=== PATIENT | female | born 1965 | race Caucasian/White ===

== ENCOUNTER 2017-01-08 13:33 | Inpatient (IN) | payer OTHER ==
[~2017-01-08] VITALS: Ht 162.6 cm; Wt 74.0 kg
[2017-01-08] MEDS ORDERED: METF500T4 PO (17:59)
[2017-01-08] MEDS ORDERED: VANCOMYCIN 1 GM (PMX) 250 ML IVPB SCH (18:00)
[2017-01-08 18:34] LABS: BASOPHILS % 0.2 % (0.0-2.0); EOSINOPHILS % 0.1 % (0.0-7.0); HEMATOCRIT 35.3 % (37.0-47.0); HEMOGLOBIN 11.7 g/dl (12.0-16.0); LYMPHOCYTES % 10.9 % (15.0-51.0); MEAN CORPUSCULAR HEMOGLOBIN 26.7 pg (29.0-33.0); MEAN CORPUSCULAR HGB CONC 33.1 g/dl (32.0-37.0); MEAN CORPUSCULAR VOLUME 80.6 fl (82.0-101.0); MEAN PLATELET VOLUME 10.1 fl (7.4-10.4); MONOCYTE # 0.6 10^3/ul (0.3-0.9); MONOCYTES % 6.7 % (0.0-11.0); NEUTROPHIL # 7.5 10^3/ul (1.6-7.5); NEUTROPHILS % 81.1 % (39.0-77.0); PLATELET COUNT 206 10^3/UL (140-415); RED BLOOD COUNT 4.38 10^6/ul (4.20-5.40); RED CELL DISTRIBUTION WIDTH 13.2 % (11.5-14.5); WHITE BLOOD COUNT 9.2 10^3/ul (4.8-10.8)
--- NOTE | 2017-01-08 18:40 | RADRPT ---
PROCEDURE: Right foot series CLINICAL INDICATION: Right foot pain. Dorsal wound TECHNIQUE: AP, oblique, and lateral views of the right foot were obtained. COMPARISON: None FINDINGS: No acute fracture or dislocations are seen. The osseous structures are well mineralized. The artic ular surfaces are normal. Dorsal soft tissue swelling is seen with a soft tissue defect identified. A radiopaque structure is seen adjacent to the first metatarsal head which may represent a calcific ation. Atherosclerotic vascular disease is seen. A plantar calcaneal spur is seen. IMPRESSION: 1. No radiographic evidence for osteomyelitis. If clinical concern for osteomyelitis persist, an M RI of the right foot is recommended. 2. Dorsal soft tissue swelling of the soft tissue defect which may represent an ulcer. 3. Radiopaque structure adjacent to the first metatarsal head which may represent a calcification. RPTAT: HPNM Physician Joselyn Date Time Electronically viewed and signed by Physician Joselyn on 01/08/2017 18:40 /
[2017-01-08 18:48] LABS: CALCIUM 9.6 mg/dl (8.4-10.2); CREATININE 0.91 mg/dl (0.44-1.00); POTASSIUM 4.5 mmol/L (3.5-5.1)
[2017-01-08] MEDS ORDERED: INSULIN REGULAR, HUMAN 100 UNIT/1 ML 3ML VIAL SC ONE (19:30)
[2017-01-08] MEDS ORDERED: SOD CHLORIDE 0.9% 1,000 ML IV SCH (19:47)
--- NOTE | 2017-01-08 19:52 | ERA ---
ER Documentation Chief Complaint Date/Time DATE: 01/08/17 TIME: 19:48 Chief Complaint RIGHT FOOT LAC DIABETIC HPI This is a 51-year-old female with a history of diabetes complains of mosquito bite to the top of her right foot last week that has progressively gotten more red with a developing ulcer. She says that her shoe is been rubbing on this area now has created a deep wound in the right foot that is red. Yesterday she had chills with subjective fever but none documented. She says the pain is mild. No swelling in the leg no chest pain cough shortness of breath or other symptoms ROS All systems reviewed and are negative except as per history of present illness. Medications Home Meds Reported Medications Metformin Hcl* (Metformin Hcl*) 500 Mg Tablet, 500 MG PO WITH BREAKFAST DINNE, # 60 TAB 01/08/17 Allergies Allergies: Coded Allergies: No Known Allergy (Unverified , 01/08/17) PMhx/Soc History of Surgery: Yes (HYSTERECTOMY ) Anesthesia Reaction: No Hx Miscellaneous Medical Probl: Yes (DM) Hx Alcohol Use: Yes Hx Substance Use: No Hx Tobacco Use: No Smoking Status: Never smoker FmHx Family History: No coronary disease Physical Exam Vitals Vital Signs Date Time Temp Pulse Resp B/P Pulse Ox O2 Delivery O2 Flow Rate FiO2 01/08/17 18:38 76 20 128/67 100 Room Air 01/08/17 13:38 98.1 78 18 134/67 99 Physical Exam Const: Well-developed, well-nourished Head: Atraumatic, normocephalic Eyes: Normal Conjunctiva, PERRLA, EOMI, normal sclera, no nystagmus ENT: Normal External Ears, Nose and Mouth, moist mucus membranes. Neck: Full range of motion. No meningismus, no lymphadenopathy. Resp: Clear to auscultation bilaterally, no wheezing, rhonchi, rales Cardio: Regular rate and rhythm, no murmurs, S1 S2 present Abd: Soft, non tender x 4, non distended. Normal bowel sounds, no guarding or rebound, no pulsitile abdominal masses or bruits Skin: No petechiae or rashes, no ecchymosis , no maculopapular rash Back: No midline or flank tenderness Ext: No cyanosis, or edema, FROM x 4, the distal dorsal part of the right foot has erythema surrounding a irregular shaped foot ulcer with pus. The ulcers approximately 2 inches in length. By half an inch wide, neurovascularly intact x 4 Neur: Awake and alert, STR 5/5 x 4, sensation intact x 4, no focal findings, cerebellum intact Psych: Normal Mood and Affect Result Diagram: 01/08/17181401/08/171814 Results 24 hrs Laboratory Tests Test 01/08/17 18:15 01/08/17 19:32 White Blood Count 9.210^3/ul Red Blood Count 4.3810^6/ul Hemoglobin 11.7g/dl Hematocrit 35.3% Mean Corpuscular Volume 80.6fl Mean Corpuscular Hemoglobin 26.7pg Mean Corpuscular Hemoglobin Concent 33.1g/dl Red Cell Distribution Width 13.2% Platelet Count 31595^3/UL Mean Platelet Volume 10.1fl Neutrophils % 81.1% Lymphocytes % 10.9% Monocytes % 6.7% Eosinophils % 0.1% Basophils % 0.2% Nucleated Red Blood Cells % 0.0/100WBC Neutrophils # 7.510^3/ul Lymphocytes # 1.010^3/ul Monocytes # 0.610^3/ul Eosinophils # 0.010^3/ul Basophils # 0.010^3/ul Nucleated Red Blood Cells # 0.010^3/ul Sodium Level 133mmol/L Potassium Level 4.5mmol/L Chloride Level 89mmol/L Carbon Dioxide Level 27mmol/L Anion Gap 22 Blood Urea Nitrogen 20mg/dl Creatinine 0.91mg/dl Glucose Level 462mg/dl Calcium Level 9.6mg/dl Bedside Glucose 471mg/dL Current Medications Medications (Trade) Dose Ordered Sig/Faheem Route PRN Reason Start Time Stop Time Status Last Admin Dose Admin Vancomycin HCl (Vancocin) 250 ml @ 125 mls/hr ONCE IVPB 01/08/17 18:00 01/08/17 19:59 01/08/17 18:21 Insulin Human Regular (Humulin R) 10 unit ONCE ONCE SC 01/08/17 19:30 01/08/17 19:31 DC 01/08/17 19:42 Procedures/MDM PROCEDURE: Right foot series CLINICAL INDICATION: Right foot pain. Dorsal wound TECHNIQUE: AP, oblique, and lateral views of the right foot were obtained. COMPARISON: None FINDINGS: No acute fracture or dislocations are seen. The osseous structures are well mineralized. The articular surfaces are normal. Dorsal soft tissue swelling is seen with a soft tissue defect identified. A radiopaque structure is seen adjacent to the first metatarsal head which may represent a calcification. Atherosclerotic vascular disease is seen. A plantar calcaneal spur is seen. IMPRESSION: 1. No radiographic evidence for osteomyelitis. If clinical concern for osteomyelitis persist, an MRI of the right foot is recommended. 2. Dorsal soft tissue swelling of the soft tissue defect which may represent an ulcer. 3. Radiopaque structure adjacent to the first metatarsal head which may represent a calcification. RPTAT: HPNM Sadiq Rousseau Physician Date Time Electronically viewed and signed by Sadiq Rousseau Physician on 01/08/2017 18 :40 / CC: GONZALO YAO DO Patient's had blood cultures and will start vancomycin. Will get a wound culture now We will admit for IV antibiotics and wound care Departure Diagnosis: Primary Impression: Cellulitis Qualified Code: L03.115 - Cellulitis of right lower extremity Additional Impressions: Diabetic ulcer of right foot Qualified Code: E11.621 - Diabetic ulcer of right midfoot associated with type 2 diabetes mellitus, with fat layer exposed Uncontrolled diabetes mellitus Qualified Code: E11.65 - Uncontrolled type 2 diabetes mellitus with hyperglycemia, with long-term current use of insulin Condition: Stable GONZALO YAO DO Jan 08, 2017 19:52
[2017-01-08] MEDS ORDERED: ONDANSETRON 4 MG INJ IV PRN (20:00)
[2017-01-08] MEDS ORDERED: ACETAMINOPHEN 325 MG TAB PO PRN (20:00)
[2017-01-08 20:41] VITALS: TEMP 98
[2017-01-08] MEDS ORDERED: INSULIN ASPART [NOVOLOG] 3 ML PEN SC ONE (21:30)
[2017-01-08] MEDS ORDERED: INSULIN GLARGINE [LANtus] 3 ML PEN SC ONE (21:30)
[2017-01-08 22:20] VITALS: BP 149/66; RESP 20
[2017-01-09 02:00] VITALS: BP 125/57; RESP 20
[2017-01-09] MEDS ORDERED: VANCOMYCIN IV PER PHARMACY XX SCH (05:00)
[2017-01-09] MEDS: VANCOMYCIN 1 GM in NS 250 ML IVPB SCH ×2 (05:40→17:59)
[2017-01-09 06:10] LABS: BASOPHILS % 0.1 % (0.0-2.0); EOSINOPHILS # 0.1 10^3/ul (0.0-0.5); EOSINOPHILS % 1.1 % (0.0-7.0); HEMOGLOBIN 10.4 g/dl (12.0-16.0); LYMPHOCYTES # 1.6 10^3/ul (0.8-2.9); LYMPHOCYTES % 18.8 % (15.0-51.0); MEAN CORPUSCULAR HEMOGLOBIN 27.1 pg (29.0-33.0); MEAN CORPUSCULAR HGB CONC 33.5 g/dl (32.0-37.0); MEAN CORPUSCULAR VOLUME 80.7 fl (82.0-101.0); MEAN PLATELET VOLUME 10.3 fl (7.4-10.4); MONOCYTE # 0.7 10^3/ul (0.3-0.9); MONOCYTES % 8.2 % (0.0-11.0); NEUTROPHIL # 5.8 10^3/ul (1.6-7.5); NEUTROPHILS % 70.8 % (39.0-77.0); PLATELET COUNT 191 10^3/UL (140-415); RED BLOOD COUNT 3.84 10^6/ul (4.20-5.40); RED CELL DISTRIBUTION WIDTH 13.2 % (11.5-14.5); WHITE BLOOD COUNT 8.3 10^3/ul (4.8-10.8)
[2017-01-09 06:47] LABS: ALBUMIN 3.3 g/dl (3.3-4.9); ALBUMIN/GLOBULIN RATIO 0.94; BILIRUBIN,INDIRECT 0.3 mg/dl (0-1.1); BILIRUBIN,TOTAL 0.3 mg/dl (0.2-1.3); CALCIUM 8.9 mg/dl (8.4-10.2); CREATININE 0.94 mg/dl (0.44-1.00); POTASSIUM 4.5 mmol/L (3.5-5.1); TOTAL PROTEIN 6.8 g/dl (6.1-8.1)
[2017-01-09 08:05] VITALS: BP 121/66; RESP 18
[2017-01-09] MEDS: INSULIN GLARGINE [LANtus] 3 ML PEN SC SCH (08:19)
[2017-01-09] MEDS: INSULIN ASPART [NOVOLOG] 3 ML PEN SC SCH ×6 (08:20→21:00)
[2017-01-09] MEDS: CEFEPIME 1GM/50 ML (PMX) 50 ML IVPB SCH ×2 (08:21→21:51)
--- NOTE | 2017-01-09 09:10 | HP ---
Date/Time of Note Date/Time of Note DATE: 01/09/17 TIME: 09:01 Assessment/Plan Lines/Catheters IV Catheter Type (from Nrs): Peripheral IV Assessment/Plan Assessment/Plan 1. Right foot infected diabetic ulcer -She will be placed on broad-spectrum antibiotic -We will follow up on MRI of the foot to rule out osteomyelitis -ID and podiatry consult will be placed as well as wound care consult 2. Diabetes hyperglycemia - will treat with insulin. Will follow up A1c level 3. Mild hyponatremia -Normal saline IV fluid was given in the ER. Will monitor closely HPI/ROS Admit Date/Time Admit Date/Time Jan 08, 2017 at 19:47 Hx of Present Illness This is a 51-year-old female with a history of diabetes who presented to the emergency department complaining of right foot infection. Patient started developing some ulceration was open wound and some drainage of the dorsum of the right foot about a week or so ago and has been progressively getting worse. She stated that the ulcer started after she was bitten by mosquito. She actually reported very minimal pain only on her right foot. She had subjective fever and chills. Abdominal pain no urinary symptoms. When she presented to the ER a chest x-ray was done that showed soft tissue swelling on the dorsum of the right foot but without radiographic evidence of osteomyelitis. Laboratory values shows glucose of 462, sodium 133, hemoglobin of 11.7 and chloride of 89 otherwise the rest of basic labs were within acceptable range. PMH/Family/Social Social History Smoking Status: Never smoker Exam/Review of Systems Vital Signs Vitals Vital Signs Date Time Temp Pulse Resp B/P Pulse Ox O2 Delivery O2 Flow Rate FiO2 01/09/17 02:00 98.9 86 20 125/57 93 01/08/17 20:41 Room Air Intake and Output 01/08/17 01/08/17 01/09/17 15:00 23:00 07:00 Intake Total 400 ml Balance 400 ml Exam Constitutional: alert, oriented, well developed Extremities: other (open ulcer on dorsum of roght foot with minimal drainage) Labs Result Diagram: 01/09/1752301/09/17523 Medications Medications Current Medications Cefepime HCl (Maxipime 1gm/50 ml (Pmx)) 50 ml @ 100 mls/hr Q12 IVPB Last administered on 01/09/17t 08:21; Admin Dose 100 MLS/HR; Start 01/09/17 at 09:00 Diagnostic Test (Pha) (Accu-Chek) 1 ea 02 XX ; Start 01/10/17 at 02:00 Insulin Glargine 11 unit 11 unit DAILY@08 SC Last administered on 01/09/17 08: 19; Admin Dose 11 UNIT; Start 01/09/17 at 08:00 Vancomycin HCl (Vancocin) 250 ml @ 125 mls/hr Q12H IVPB Last administered on 05:40; Admin Dose 125 MLS/HR; Start 01/09/17 at 05:00 Miscellaneous Information (*Rx Drug Level Order Reminder*) VANCOMYCIN TROUGH AT 0400 ONCE ONCE XX ; Start 01/10/17 at 04:00; Stop 01/10/17 at 04:01 MAYELA MARIN MD Jan 09, 2017 09:10
[2017-01-09] MEDS ORDERED: COLLAGENASE 30 GM TUBE TOP PRN (10:30)
[2017-01-09] MEDS ORDERED: PENDING SANTYL ORDER FOR WOUND CARE XX SCH (10:30)
[2017-01-09] MEDS ORDERED: INSULIN LISPRO 100 UNIT/ML VIAL SC SCH (11:30)
--- NOTE | 2017-01-09 13:39 | PN ---
Date/Time of Note Date/Time of Note DATE: 01/09/17 TIME: 13:33 Assessment/Plan VTE Prophylaxis VTE Prophylaxis Intervention: SCD's Lines/Catheters IV Catheter Type (from Nrsg): Peripheral IV Assessment/Plan Chief Complaint/Hosp Course Assessment and plan 1. Right foot diabetic foot ulcer. Continue antibiotics. Of note foot x-ray did show no radiographic evidence for osteomyelitis. MRI of the foot is pending. Podiatry and ID consulted. Will follow up with recommendations. Continue wound care. 2. Diabetes. A1c pending. Insulin adjusted for better control. Will follow up. 3. Anemia. Follow-up on iron panel. Disposition plan: Await consult recommendations. Continue in-house monitoring for now. Discussed plan of care with Dr. Martin Problems: Subjective 24 Hr Interval Summary Free Text/Dictation Denies any pain. No specific complaints. Comfortable at present. Exam/Review of Systems Vital Signs Vitals Vital Signs Date Time Temp Pulse Resp B/P Pulse Ox O2 Delivery O2 Flow Rate FiO2 01/09/17 08:05 98.1 82 18 121/66 95 01/08/17 20:41 Room Air Intake and Output 01/08/17 01/08/17 01/09/17 15:00 23:00 07:00 Intake Total 400 ml Balance 400 ml Exam Constitutional: alert, obese, oriented Psych: nl mood/affect Head: normocephalic Eyes: nl conjunctiva Neck: supple, No jvd Respiratory: clear to auscultation Cardiovascular: regular rate and rhythm Gastrointestinal: non-tender, soft Extremities: edema (BLE ) Neurological: [employer] II-XII intact, nl mental status, nl speech Skin: other (right dorsal foot ulcer seen) Results Result Diagram: 01/09/1724 01/09/17 0524 Results 24 hrs Laboratory Tests Test 01/08/17 18:15 01/08/17 19:32 01/08/17 20:48 01/08/17 21:51 White Blood Count 9.2 Red Blood Count 4.38 Hemoglobin 11.7 L Hematocrit 35.3 L Mean Corpuscular Volume 80.6 L Mean Corpuscular Hemoglobin 26.7 L Mean Corpuscular Hemoglobin Concent 33.1 Red Cell Distribution Width 13.2 Platelet Count 206 Mean Platelet Volume 10.1 Neutrophils % 81.1 H Lymphocytes % 10.9 L Monocytes % 6.7 Eosinophils % 0.1 Basophils % 0.2 Nucleated Red Blood Cells % 0.0 Neutrophils # 7.5 Lymphocytes # 1.0 Monocytes # 0.6 Eosinophils # 0.0 Basophils # 0.0 Nucleated Red Blood Cells # 0.0 Sodium Level 133 L Potassium Level 4.5 Chloride Level 89 L Carbon Dioxide Level 27 Anion Gap 22 H Blood Urea Nitrogen 20 Creatinine 0.91 Glucose Level 462 *H Calcium Level 9.6 Bedside Glucose 471 *H 460 *H 420 *H Test 01/09/17 02:07 01/09/17 05:24 01/09/17 08:00 01/09/17 11:45 Bedside Glucose 263 H 267 H 269 H White Blood Count 8.3 Red Blood Count 3.84 L Hemoglobin 10.4 L Hematocrit 31.0 L Mean Corpuscular Volume 80.7 L Mean Corpuscular Hemoglobin 27.1 L Mean Corpuscular Hemoglobin Concent 33.5 Red Cell Distribution Width 13.2 Platelet Count 191 Mean Platelet Volume 10.3 Neutrophils % 70.8 Lymphocytes % 18.8 Monocytes % 8.2 Eosinophils % 1.1 Basophils % 0.1 Nucleated Red Blood Cells % 0.0 Neutrophils # 5.8 Lymphocytes # 1.6 Monocytes # 0.7 Eosinophils # 0.1 Basophils # 0.0 Nucleated Red Blood Cells # 0.0 Sodium Level 135 Potassium Level 4.5 Chloride Level 98 Carbon Dioxide Level 25 Anion Gap 17 H Blood Urea Nitrogen 25 H Creatinine 0.94 Glucose Level 281 #H Hemoglobin A1c Calcium Level 8.9 Total Bilirubin 0.3 Direct Bilirubin 0.00 Indirect Bilirubin 0.3 Aspartate Amino Transf (AST/SGOT) 23 Alanine Aminotransferase (ALT/SGPT) 31 Alkaline Phosphatase 154 H Total Protein 6.8 Albumin 3.3 Globulin 3.50 H Albumin/Globulin Ratio 0.94 Medications Medications Current Medications Cefepime HCl (Maxipime 1gm/50 ml (Pmx)) 50 ml @ 100 mls/hr Q12 IVPB Last administered on 01/09/17 08:21; Admin Dose 100 MLS/HR; Start 01/09/17 at 09:00 Diagnostic Test (Pha) (Accu-Chek) 1 ea 02 XX ; Start 01/10/17 at 02:00 Insulin Glargine 11 unit 11 unit DAILY@08 SC Last administered on 01/09/17 08: 19; Admin Dose 11 UNIT; Start 01/09/17 at 08:00 Vancomycin HCl (Vancocin) 250 ml @ 125 mls/hr Q12H IVPB Last administered on t 05:40; Admin Dose 125 MLS/HR; Start 01/09/17 at 05:00 Miscellaneous Information (*Rx Drug Level Order Reminder*) VANCOMYCIN TROUGH AT 0400 ONCE ONCE XX ; Start 01/10/17 at 04:00; Stop 01/10/17 at 04:01 Collagenase (Santyl) 1 applic DAILY TOP ; Start 01/09/17 at 12:00 Collagenase (Santyl) 1 applic PRN PRN TOP WOUND CARE; Start 01/09/17 at 10:30 YULIET PAUL Jan 09, 2017 13:39
[2017-01-09] MEDS: COLLAGENASE 30 GM TUBE TOP SCH (13:48)
[2017-01-09 14:13] VITALS: BP 116/55; RESP 16
--- NOTE | 2017-01-09 14:25 | CONS ---
Date/Time of Note Date/Time of Note DATE: 01/09/17 TIME: 14:23 Consultation Date/Type/Reason Admit Date/Time Jan 08, 2017 at 19:47 Type of Consultation: ID Reason for Consultation Antibiotic management of a right foot diabetic ulcer, with Vancomycin and cefipime. Psychological: nl mood/affect Social History Smoking Status: Never smoker Exam/Review of Systems Vital Signs Vitals Vital Signs Date Time Temp Pulse Resp B/P Pulse Ox O2 Delivery O2 Flow Rate FiO2 01/09/17 08:05 98.1 82 18 121/66 95 01/08/17 20:41 Room Air Intake and Output 01/08/17 01/08/17 01/09/17 15:00 23:00 07:00 Intake Total 400 ml Balance 400 ml Results Result Diagram: 01/09/1724 01/09/17 0524 Results 24 hrs Laboratory Tests Test 01/08/17 18:15 01/08/17 19:32 01/08/17 20:48 01/08/17 21:51 White Blood Count 9.2 Red Blood Count 4.38 Hemoglobin 11.7 L Hematocrit 35.3 L Mean Corpuscular Volume 80.6 L Mean Corpuscular Hemoglobin 26.7 L Mean Corpuscular Hemoglobin Concent 33.1 Red Cell Distribution Width 13.2 Platelet Count 206 Mean Platelet Volume 10.1 Neutrophils % 81.1 H Lymphocytes % 10.9 L Monocytes % 6.7 Eosinophils % 0.1 Basophils % 0.2 Nucleated Red Blood Cells % 0.0 Neutrophils # 7.5 Lymphocytes # 1.0 Monocytes # 0.6 Eosinophils # 0.0 Basophils # 0.0 Nucleated Red Blood Cells # 0.0 Sodium Level 133 L Potassium Level 4.5 Chloride Level 89 L Carbon Dioxide Level 27 Anion Gap 22 H Blood Urea Nitrogen 20 Creatinine 0.91 Glucose Level 462 *H Calcium Level 9.6 Bedside Glucose 471 *H 460 *H 420 *H Test 01/09/17 02:07 01/09/17 05:24 01/09/17 08:00 01/09/17 11:45 Bedside Glucose 263 H 267 H 269 H White Blood Count 8.3 Red Blood Count 3.84 L Hemoglobin 10.4 L Hematocrit 31.0 L Mean Corpuscular Volume 80.7 L Mean Corpuscular Hemoglobin 27.1 L Mean Corpuscular Hemoglobin Concent 33.5 Red Cell Distribution Width 13.2 Platelet Count 191 Mean Platelet Volume 10.3 Neutrophils % 70.8 Lymphocytes % 18.8 Monocytes % 8.2 Eosinophils % 1.1 Basophils % 0.1 Nucleated Red Blood Cells % 0.0 Neutrophils # 5.8 Lymphocytes # 1.6 Monocytes # 0.7 Eosinophils # 0.1 Basophils # 0.0 Nucleated Red Blood Cells # 0.0 Sodium Level 135 Potassium Level 4.5 Chloride Level 98 Carbon Dioxide Level 25 Anion Gap 17 H Blood Urea Nitrogen 25 H Creatinine 0.94 Glucose Level 281 #H Hemoglobin A1c Calcium Level 8.9 Total Bilirubin 0.3 Direct Bilirubin 0.00 Indirect Bilirubin 0.3 Aspartate Amino Transf (AST/SGOT) 23 Alanine Aminotransferase (ALT/SGPT) 31 Alkaline Phosphatase 154 H Total Protein 6.8 Albumin 3.3 Globulin 3.50 H Albumin/Globulin Ratio 0.94 Medications Medications Current Medications Cefepime HCl (Maxipime 1gm/50 ml (Pmx)) 50 ml @ 100 mls/hr Q12 IVPB Last administered on 01/09/17 08:21; Admin Dose 100 MLS/HR; Start 01/09/17 at 09:00 Diagnostic Test (Pha) (Accu-Chek) 1 ea 02 XX ; Start 01/10/17 at 02:00 Insulin Glargine 11 unit 11 unit DAILY@08 SC Last administered on 01/09/17 08: 19; Admin Dose 11 UNIT; Start 01/09/17 at 08:00 Vancomycin HCl (Vancocin) 250 ml @ 125 mls/hr Q12H IVPB Last administered on 05:40; Admin Dose 125 MLS/HR; Start 01/09/17 at 05:00 Miscellaneous Information (*Rx Drug Level Order Reminder*) VANCOMYCIN TROUGH AT 0400 ONCE ONCE XX ; Start 01/10/17 at 04:00; Stop 01/10/17 at 04:01 Collagenase (Santyl) 1 applic DAILY TOP Last administered on 01/09/17 13:48; Admin Dose 1 APPLIC; Start 01/09/17 at 12:00 Collagenase (Santyl) 1 applic PRN PRN TOP WOUND CARE; Start 01/09/17 at 10:30 Heparin Sodium (Porcine) (Heparin (5000 Units/0.5 ml)) 5,000 unit BID SC ; Start 01/09/17 at 21:00 KYLE BOWEN MD Jan 09, 2017 14:25
[2017-01-09 20:00] VITALS: BP 135/74; RESP 20
[2017-01-09] MEDS: HEPARIN 5,000 UNIT/0.5 ML VIAL SC SCH (21:52)
[2017-01-10 02:00] VITALS: BP 141/64; RESP 20
[2017-01-10] MEDS ORDERED: ACCU-CHEK XX SCH (02:00)
[2017-01-10] MEDS: ACCU-CHEK XX SCH (02:00)
[2017-01-10 04:26] LABS: BASOPHILS % 0.2 % (0.0-2.0); EOSINOPHILS # 0.1 10^3/ul (0.0-0.5); EOSINOPHILS % 1.5 % (0.0-7.0); HEMATOCRIT 31.8 % (37.0-47.0); HEMOGLOBIN 10.5 g/dl (12.0-16.0); LYMPHOCYTES # 1.3 10^3/ul (0.8-2.9); LYMPHOCYTES % 20.4 % (15.0-51.0); MEAN CORPUSCULAR HEMOGLOBIN 26.7 pg (29.0-33.0); MEAN CORPUSCULAR VOLUME 80.9 fl (82.0-101.0); MEAN PLATELET VOLUME 10.2 fl (7.4-10.4); MONOCYTE # 0.5 10^3/ul (0.3-0.9); MONOCYTES % 7.1 % (0.0-11.0); NEUTROPHIL # 4.6 10^3/ul (1.6-7.5); NEUTROPHILS % 69.9 % (39.0-77.0); PLATELET COUNT 210 10^3/UL (140-415); RED BLOOD COUNT 3.93 10^6/ul (4.20-5.40); RED CELL DISTRIBUTION WIDTH 13.2 % (11.5-14.5); WHITE BLOOD COUNT 6.5 10^3/ul (4.8-10.8)
[2017-01-10 05:02] LABS: CALCIUM 9.1 mg/dl (8.4-10.2); CREATININE 0.75 mg/dl (0.44-1.00); POTASSIUM 4.2 mmol/L (3.5-5.1)
[2017-01-10] MEDS: VANCOMYCIN 1 GM in NS 250 ML IVPB SCH ×2 (05:29→17:17)
[2017-01-10] MEDS: INSULIN ASPART [NOVOLOG] 3 ML PEN SC SCH ×7 (08:03→20:05)
[2017-01-10] MEDS: INSULIN GLARGINE [LANtus] 3 ML PEN SC SCH (08:05)
--- NOTE | 2017-01-10 08:35 | PN ---
Date/Time of Note Date/Time of Note DATE: 01/10/17 TIME: 08:28 Assessment/Plan VTE Prophylaxis VTE Prophylaxis Intervention: LMWH Lines/Catheters IV Catheter Type (from Nrsg): Peripheral IV Assessment/Plan Assessment/Plan R diabetic foot cellulitis DM 2,poorly controlled Cont vanco and cefepime await A1C result await MRI of R foot ID and podiatry follow up Subjective 24 Hr Interval Summary Constitutional: no complaints Exam/Review of Systems Vital Signs Vitals Vital Signs Date Time Temp Pulse Resp B/P Pulse Ox O2 Delivery O2 Flow Rate FiO2 01/10/17 02:00 98.2 85 20 141/64 96 01/08/17 20:41 Room Air Intake and Output 01/09/17 01/09/17 01/10/17 15:00 23:00 07:00 Intake Total 350 ml 1070 ml 480 ml Balance 350 ml 1070 ml 480 ml Exam Neck: supple Respiratory: clear to auscultation Cardiovascular: regular rate and rhythm Gastrointestinal: non-tender, soft Extremities: normal pulses, other (R foot with ulcerated leion and surrounding erythema on dorsal aspect) Results Result Diagram: 01/10/17 0348 01/10/17 0348 Results 24 hrs Laboratory Tests Test 01/09/17 11:45 01/09/17 17:24 01/09/17 21:42 01/10/17 03:48 Bedside Glucose 269 H 181 177 White Blood Count 6.5 # Red Blood Count 3.93 L Hemoglobin 10.5 L Hematocrit 31.8 L Mean Corpuscular Volume 80.9 L Mean Corpuscular Hemoglobin 26.7 L Mean Corpuscular Hemoglobin Concent 33.0 Red Cell Distribution Width 13.2 Platelet Count 210 Mean Platelet Volume 10.2 Neutrophils % 69.9 Lymphocytes % 20.4 Monocytes % 7.1 Eosinophils % 1.5 Basophils % 0.2 Nucleated Red Blood Cells % 0.0 Neutrophils # 4.6 Lymphocytes # 1.3 Monocytes # 0.5 Eosinophils # 0.1 Basophils # 0.0 Nucleated Red Blood Cells # 0.0 Sodium Level 138 Potassium Level 4.2 Chloride Level 98 Carbon Dioxide Level 26 Anion Gap 18 H Blood Urea Nitrogen 20 Creatinine 0.75 Glucose Level 278 H Calcium Level 9.1 Vancomycin Level Trough 12.7 Test 01/10/17 07:53 Bedside Glucose 328 H Medications Medications Current Medications Cefepime HCl (Maxipime 1gm/50 ml (Pmx)) 50 ml @ 100 mls/hr Q12 IVPB Last administered on 01/09/17 21:51; Admin Dose 100 MLS/HR; Start 01/09/17 at 09:00 Diagnostic Test (Pha) (Accu-Chek) 1 ea 02 XX ; Start 01/10/17 at 02:00 Insulin Glargine 11 unit 11 unit DAILY@08 SC Last administered on 01/10/17 08: 05; Admin Dose 11 UNIT; Start 01/09/17 at 08:00 Vancomycin HCl (Vancocin) 250 ml @ 125 mls/hr Q12H IVPB Last administered on 05:29; Admin Dose 125 MLS/HR; Start 01/09/17 at 05:00 Collagenase (Santyl) 1 applic DAILY TOP Last administered on 01/09/17 13:48; Admin Dose 1 APPLIC; Start 01/09/17 at 12:00 Collagenase (Santyl) 1 applic PRN PRN TOP WOUND CARE; Start 01/09/17 at 10:30 Heparin Sodium (Porcine) (Heparin (5000 Units/0.5 ml)) 5,000 unit BID SC Last administered on 01/09/17 21:52; Admin Dose 5,000 UNIT; Start 01/09/17 at 21:00 DENI MTZ MD Jan 10, 2017 08:35
[2017-01-10 08:50] VITALS: BP 147/67; PULSE 83; RESP 18
[2017-01-10] MEDS: CEFEPIME 1GM/50 ML (PMX) 50 ML IVPB SCH ×2 (08:51→20:02)
[2017-01-10] MEDS: LISINOPRIL 10 MG TAB GTB SCH (08:51)
[2017-01-10] MEDS: HEPARIN 5,000 UNIT/0.5 ML VIAL SC SCH ×2 (08:52→20:03)
[2017-01-10] MEDS ORDERED: DEXTROSE 50% 50 ML SYRINGE IV PRN ×2 (09:00)
[2017-01-10] MEDS ORDERED: GLUCOSE GEL 15 GRAM TUBE BUCCAL PRN (09:00)
[2017-01-10] MEDS ORDERED: GLUCAGON 1 MG INJ IM PRN (09:00)
[2017-01-10] MEDS ORDERED: GLUCOSE GEL 15 GRAM TUBE PO PRN ×2 (09:00)
[2017-01-10 09:07] VITALS: BP 170/71; RESP 18
[2017-01-10] MEDS: COLLAGENASE 30 GM TUBE TOP SCH (12:01)
[2017-01-10 13:10] VITALS: BP 122/62; PULSE 86
--- NOTE | 2017-01-10 15:31 | CONS ---
Date/Time of Note Date/Time of Note DATE: 01/10/17 TIME: 15:30 Assessment/Plan Assessment/Plan Chief Complaint/Hosp Course Patient is alert feels good wants to take a shower she just came back from MRI WBC 6.5, no shift no bands BN 20 creatinine 0.75 Blood cultures remain negative Antimicrobials cefepime vancomycin X-ray of the foot revealed no radiographic evidence for osteomyelitis Physical examination this is a well-nourished well-developed middle-aged woman who is alert in no distress. Head atraumatic normocephalic sclera nonicteric. Neck is supple. Chest rise symmetrical breath sounds clear heart S1-S2 abdomen soft bowel tones present extremities without cyanosis right foot with necrotic wound and some drainage on the top of the foot Assessment: 1. Right foot cellulitis with chronic wound 2. Diabetes, poorly controlled Plan: Patient remains stable we will will order wound culture await for MRI report, continue antibiotics and follow podiatry recommendations Problems: Consultation Date/Type/Reason Admit Date/Time Jan 08, 2017 at 19:47 Initial Consult Date Type of Consultation: ID Exam/Review of Systems Vital Signs Vitals Vital Signs Date Time Temp Pulse Resp B/P Pulse Ox O2 Delivery O2 Flow Rate FiO2 01/10/17 13:10 86 122/62 01/10/17 09:07 98.6 18 95 01/08/17 20:41 Room Air Intake and Output 01/09/17 01/09/17 01/10/17 15:00 23:00 07:00 Intake Total 350 ml 1070 ml 480 ml Balance 350 ml 1070 ml 480 ml Results Result Diagram: 01/10/17 0348 01/10/17 0348 Results 24 hrs Laboratory Tests Test 01/09/17 17:24 01/09/17 21:42 01/10/17 03:48 01/10/17 07:53 Bedside Glucose 181 177 328 H White Blood Count 6.5 # Red Blood Count 3.93 L Hemoglobin 10.5 L Hematocrit 31.8 L Mean Corpuscular Volume 80.9 L Mean Corpuscular Hemoglobin 26.7 L Mean Corpuscular Hemoglobin Concent 33.0 Red Cell Distribution Width 13.2 Platelet Count 210 Mean Platelet Volume 10.2 Neutrophils % 69.9 Lymphocytes % 20.4 Monocytes % 7.1 Eosinophils % 1.5 Basophils % 0.2 Nucleated Red Blood Cells % 0.0 Neutrophils # 4.6 Lymphocytes # 1.3 Monocytes # 0.5 Eosinophils # 0.1 Basophils # 0.0 Nucleated Red Blood Cells # 0.0 Sodium Level 138 Potassium Level 4.2 Chloride Level 98 Carbon Dioxide Level 26 Anion Gap 18 H Blood Urea Nitrogen 20 Creatinine 0.75 Glucose Level 278 H Calcium Level 9.1 Vancomycin Level Trough 12.7 Test 01/10/17 11:53 Bedside Glucose 257 H Medications Medications Current Medications Cefepime HCl (Maxipime 1gm/50 ml (Pmx)) 50 ml @ 100 mls/hr Q12 IVPB Last administered on 01/10/17 08:51; Admin Dose 100 MLS/HR; Start 01/09/17 at 09:00 Diagnostic Test (Pha) 1 ea 1 ea 02 XX ; Start 01/10/17 at 02:00 Vancomycin HCl (Vancocin) 250 ml @ 125 mls/hr Q12H IVPB Last administered on 05:29; Admin Dose 125 MLS/HR; Start 01/09/17 at 05:00 Collagenase (Santyl) 1 applic DAILY TOP Last administered on 01/10/17 12:01; Admin Dose 1 APPLIC; Start 01/09/17 at 12:00 Collagenase (Santyl) 1 applic PRN PRN TOP WOUND CARE; Start 01/09/17 at 10:30 Heparin Sodium (Porcine) (Heparin (5000 Units/0.5 ml)) 5,000 unit BID SC Last administered on 01/10/17 08:52; Admin Dose 5,000 UNIT; Start 01/09/17 at 21:00 Insulin Glargine (Lantus) 15 unit DAILY@08 SC ; Start 01/11/17 at 08:00 Miscellaneous Information 1 ea NOTE XX ; Start 01/10/17 at 09:00 Glucose (Glutose) 15 gm Q15M PRN PO DECREASED GLUCOSE; Start 01/10/17 at 09:00 Glucose (Glutose) 22.5 gm Q15M PRN PO DECREASED GLUCOSE; Start 01/10/17 at 09: 00 Dextrose (D50w Syringe) 25 ml Q15M PRN IV DECREASED GLUCOSE; Start 01/10/17 at 09:00 Dextrose (D50w Syringe) 50 ml Q15M PRN IV DECREASED GLUCOSE; Start 01/10/17 at 09:00 Glucagon (Glucagen) 1 mg Q15M PRN IM DECREASED GLUCOSE; Start 01/10/17 at 09:00 Glucose (Glutose) 15 gm Q15M PRN BUCCAL DECREASED GLUCOSE; Start 01/10/17 at 09 :00 Lisinopril (Zestril) 10 mg DAILY GTB Last administered on 01/10/17t 08:51; Admin Dose 10 MG; Start 01/10/17 at 09:00 AYANNA HERNANDEZ NP Jan 10, 2017 15:30
[2017-01-10 16:03] VITALS: BP 181/81; RESP 17
--- NOTE | 2017-01-10 16:20 | RADRPT ---
PROCEDURE: MRI OF THE RIGHT FOOT. CLINICAL INDICATION: Possible osteomyelitis with wound in the midfoot around the metatarsals with sw elling TECHNIQUE: Multiple MRI images of the right foot were obtained in multiple planes utilizing multip le pulse sequences. Images were interpreted on the high-resolution PACS system. COMPARISON: 01/08/2017 FINDINGS: 1st ray: There is a skin ulcer along the dorsal aspect of the foot with edema within the soft tissue s over the proximal to mid first metatarsal. The ulcer and edema extends adjacent to the extensor h allucis longus tendon with a small amount of fluid surrounding the tendon fibers in keeping with ten osynovitis. There is no acute fracture, bone marrow edema, or evidence of osteomyelitis within the first metatarsal. There is no drainable abscess. There is mild partial-thickness chondral loss and osseous spurring within the first metatarsophalang eal joint. There is a bipartite medial sesamoid with mild marrow edema. The collateral ligaments a re intact. There is no significant joint effusion. 2nd ray: There is no acute fracture or bone marrow edema. There is no evidence for osteomyelitis. The metatarsophalangeal joint is intact. The chondral surfaces are preserved. The collateral ligam ents are intact. No significant joint effusion is present. There is dorsal subluxation of the proxi mal phalanx relative to the metatarsals. 3rd ray through 5th ray: There is no acute fracture or bone marrow edema. There is no evidence for osteomyelitis. The metatarsophalangeal joints are intact. The chondral surfaces are preserved. The collateral ligaments are intact. No significant joint effusion is present. There is dorsal subluxa tion of the proximal phalanges relative to the metatarsals. MIDFOOT: The tarsometatarsal joints are intact. The Lisfranc's ligament is intact. The naviculocun eiform, talonavicular, and calcaneocuboid joints are intact. Other findings: There is no Milan's neuroma. No plantar fibroma is visualized. The flexor tendons around the foot are unremarkable. There is increased signal with fatty atrophy of the muscles around the foot which may be from edema and/or denervation changes. RPTAT: QQ IMPRESSION: 1. Small skin ulcer within the dorsal subcutaneous soft tissues over the proximal to mid first meta tarsal with mild tenosynovitis of the adjacent extensor hallucis longus tendon. No evidence for ost eomyelitis or a drainable abscess. 2. 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 3. Hammertoe deformity of the lesser metatarsophalangeal joints. .Ivon Cesar MD, Date Time Electronically viewed and signed by .Ivon Cesar MD, on 01/10/2017 16:19 .T/
[2017-01-10 20:00] VITALS: BP 148/69; RESP 19
[2017-01-11 02:00] VITALS: BP 133/63; RESP 19
[2017-01-11] MEDS: ACCU-CHEK XX SCH (02:11)
[2017-01-11] MEDS: VANCOMYCIN 1 GM in NS 250 ML IVPB SCH ×2 (04:29→16:40)
[2017-01-11 06:03] LABS: BASOPHILS % 0.4 % (0.0-2.0); EOSINOPHILS # 0.1 10^3/ul (0.0-0.5); EOSINOPHILS % 2.1 % (0.0-7.0); HEMATOCRIT 29.1 % (37.0-47.0); HEMOGLOBIN 9.8 g/dl (12.0-16.0); LYMPHOCYTES # 1.3 10^3/ul (0.8-2.9); LYMPHOCYTES % 23.5 % (15.0-51.0); MEAN CORPUSCULAR HEMOGLOBIN 27.2 pg (29.0-33.0); MEAN CORPUSCULAR HGB CONC 33.7 g/dl (32.0-37.0); MEAN CORPUSCULAR VOLUME 80.8 fl (82.0-101.0); MEAN PLATELET VOLUME 10.2 fl (7.4-10.4); MONOCYTE # 0.4 10^3/ul (0.3-0.9); MONOCYTES % 7.8 % (0.0-11.0); NEUTROPHIL # 3.6 10^3/ul (1.6-7.5); NEUTROPHILS % 64.6 % (39.0-77.0); PLATELET COUNT 207 10^3/UL (140-415); RED CELL DISTRIBUTION WIDTH 13.1 % (11.5-14.5); WHITE BLOOD COUNT 5.6 10^3/ul (4.8-10.8)
[2017-01-11 06:43] LABS: CALCIUM 8.6 mg/dl (8.4-10.2); CREATININE 0.86 mg/dl (0.44-1.00); POTASSIUM 4.2 mmol/L (3.5-5.1)
[2017-01-11 08:00] VITALS: BP 138/67; RESP 18
[2017-01-11] MEDS ORDERED: INSULIN GLARGINE [LANtus] 3 ML PEN SC SCH (08:00)
[2017-01-11] MEDS: INSULIN ASPART [NOVOLOG] 3 ML PEN SC SCH ×7 (08:12→23:05)
[2017-01-11] MEDS: HEPARIN 5,000 UNIT/0.5 ML VIAL SC SCH ×2 (09:00→21:00)
[2017-01-11] MEDS: LISINOPRIL 10 MG TAB GTB SCH (09:53)
[2017-01-11] MEDS: CEFEPIME 1GM/50 ML (PMX) 50 ML IVPB SCH ×2 (09:54→21:00)
[2017-01-11] MEDS: COLLAGENASE 30 GM TUBE TOP SCH (09:58)
--- NOTE | 2017-01-11 13:35 | CONS ---
Date/Time of Note Date/Time of Note DATE: 01/11/17 TIME: 13:33 Assessment/Plan Assessment/Plan Chief Complaint/Hosp Course Patient is alert feels good no fevers Blood cultures remain negative, wound culture pending MRI revealed no osteomyelitis Antimicrobials: Cefepime vancomycin Physical examination this is a well-nourished well-developed middle-aged woman who is alert in no distress. Head atraumatic normocephalic sclera nonicteric. Neck is supple. Chest rise symmetrical breath sounds clear heart S1-S2 abdomen soft bowel tones present extremities without cyanosis right foot with necrotic wound and some drainage on the top of the foot Assessment: 1. Right foot cellulitis with chronic wound, no evidence of osteomyelitis but mild tenosynovitis 2. Diabetes, poorly controlled Plan: Patient remains, continue antibiotics, follow wound cultures and follow podiatry recommendations Discussed with staff Problems: Consultation Date/Type/Reason Admit Date/Time Jan 08, 2017 at 19:47 Type of Consultation: ID Exam/Review of Systems Vital Signs Vitals Vital Signs Date Time Temp Pulse Resp B/P Pulse Ox O2 Delivery O2 Flow Rate FiO2 01/11/17 08:00 99.2 79 18 138/67 96 01/08/17 20:41 Room Air Intake and Output 01/10/17 01/10/17 01/11/17 15:00 23:00 07:00 Intake Total 250 ml 910 ml 490 ml Balance 250 ml 910 ml 490 ml Results Result Diagram: 01/11/17 0523 01/11/17 0523 Results 24 hrs Laboratory Tests Test 01/10/17 17:11 01/10/17 20:00 01/11/17 00:28 01/11/17 02:08 Bedside Glucose 230 H 199 223 H 234 H Test 01/11/17 05:23 01/11/17 08:08 01/11/17 11:46 White Blood Count 5.6 Red Blood Count 3.60 L Hemoglobin 9.8 L Hematocrit 29.1 L Mean Corpuscular Volume 80.8 L Mean Corpuscular Hemoglobin 27.2 L Mean Corpuscular Hemoglobin Concent 33.7 Red Cell Distribution Width 13.1 Platelet Count 207 Mean Platelet Volume 10.2 Neutrophils % 64.6 Lymphocytes % 23.5 Monocytes % 7.8 Eosinophils % 2.1 Basophils % 0.4 Nucleated Red Blood Cells % 0.0 Neutrophils # 3.6 Lymphocytes # 1.3 Monocytes # 0.4 Eosinophils # 0.1 Basophils # 0.0 Nucleated Red Blood Cells # 0.0 Sodium Level 138 Potassium Level 4.2 Chloride Level 102 Carbon Dioxide Level 23 Anion Gap 17 H Blood Urea Nitrogen 27 H Creatinine 0.86 Glucose Level 261 H Calcium Level 8.6 Bedside Glucose 254 H 306 H Medications Medications Current Medications Cefepime HCl (Maxipime 1gm/50 ml (Pmx)) 50 ml @ 100 mls/hr Q12 IVPB Last administered on 01/11/17 09:54; Admin Dose 100 MLS/HR; Start 01/09/17 at 09:00 Diagnostic Test (Pha) 1 ea 1 ea 02 XX Last administered on 01/11/17 02:11; Admin Dose 1 EA; Start 01/10/17 at 02:00 Vancomycin HCl (Vancocin) 250 ml @ 125 mls/hr Q12H IVPB Last administered on 04:29; Admin Dose 125 MLS/HR; Start 01/09/17 at 05:00 Collagenase (Santyl) 1 applic DAILY TOP Last administered on 01/11/17 09:58; Admin Dose 1 APPLIC; Start 01/09/17 at 12:00 Collagenase (Santyl) 1 applic PRN PRN TOP WOUND CARE; Start 01/09/17 at 10:30 Heparin Sodium (Porcine) (Heparin (5000 Units/0.5 ml)) 5,000 unit BID SC Last administered on 01/10/17 20:03; Admin Dose 5,000 UNIT; Start 01/09/17 at 21:00 Insulin Glargine (Lantus) 15 unit DAILY@08 SC Last administered on 01/11/17 08 :13; Admin Dose 15 UNIT; Start 01/11/17 at 08:00 Miscellaneous Information 1 ea NOTE XX ; Start 01/10/17 at 09:00 Glucose (Glutose) 15 gm Q15M PRN PO DECREASED GLUCOSE; Start 01/10/17 at 09:00 Glucose (Glutose) 22.5 gm Q15M PRN PO DECREASED GLUCOSE; Start 01/10/17 at 09: 00 Dextrose (D50w Syringe) 25 ml Q15M PRN IV DECREASED GLUCOSE; Start 01/10/17 at 09:00 Dextrose (D50w Syringe) 50 ml Q15M PRN IV DECREASED GLUCOSE; Start 01/10/17 at 09:00 Glucagon (Glucagen) 1 mg Q15M PRN IM DECREASED GLUCOSE; Start 01/10/17 at 09:00 Glucose (Glutose) 15 gm Q15M PRN BUCCAL DECREASED GLUCOSE; Start 01/10/17 at 09 :00 Lisinopril (Zestril) 10 mg DAILY GTB Last administered on 01/11/17t 09:53; Admin Dose 10 MG; Start 01/10/17 at 09:00 AYANNA HERNANDEZ NP Jan 11, 2017 13:35
--- NOTE | 2017-01-11 15:22 | PN ---
Date/Time of Note Date/Time of Note DATE: 01/11/17 TIME: 15:05 Assessment/Plan VTE Prophylaxis VTE Prophylaxis Intervention: heparin Lines/Catheters IV Catheter Type (from Nrs): Peripheral IV Assessment/Plan Assessment/Plan 51-year-old female: 1. Right foot infected diabetic ulcer with cellulitis of the right foot, infectious disease following patient on vancomycin and cefepime. Wound culture pending. Podiatry consult pending. Wound care consult pending. MRI with no signs of abscess or osteomyelitis. 2. Diabetes mellitus, uncontrolled with hemoglobin A1c above range. I have adjusted her Lantus to 18 units every morning and insulin aspart 6 units q. before meals. Continue sliding scale insulin. Will add Tradjenta if needed versus resuming metformin at time of discharge. Patient definitely needs insulin therapy. Diabetic education will be ordered Prophylaxis: Heparin for DVT prophylaxis, Pepcid for GI prophylaxis Disposition: Wound care consult pending, podiatry evaluation pending Subjective 24 Hr Interval Summary Free Text/Dictation Patient remained stable, no complaints, dressing in place. MRI of the foot shows no osteomyelitis or abscess. Podiatry consult pending, wound care consult pending. Appreciate infectious disease follow-ups patient on IV antibiotics. Wound culture with gram-positive cocci and gram-negative rods, final cultures pending. Exam/Review of Systems Vital Signs Vitals Vital Signs Date Time Temp Pulse Resp B/P Pulse Ox O2 Delivery O2 Flow Rate FiO2 01/11/17 08:00 99.2 79 18 138/67 96 01/08/17 20:41 Room Air Intake and Output 01/10/17 01/10/17 01/11/17 15:00 23:00 07:00 Intake Total 250 ml 910 ml 490 ml Balance 250 ml 910 ml 490 ml Exam Constitutional: alert, oriented, well developed Respiratory: clear to auscultation, normal air movement Cardiovascular: nl pulses, regular rate and rhythm Gastrointestinal: non-tender, soft Musculoskeletal: other (Right forefoot diabetic ulcer, on exam today no edema or erythema of the foot. Dressing in place) Extremities: normal pulses Neurological: [employer]CH[employer]ING [employer] II-XII intact, nl mental status, nl speech, nl strength Results Result Diagram: 01/11/17 0523 01/11/17 0523 Results 24 hrs Laboratory Tests Test 01/10/17 17:11 01/10/17 20:00 01/11/17 00:28 01/11/17 02:08 Bedside Glucose 230 H 199 223 H 234 H Test 01/11/17 05:23 01/11/17 08:08 01/11/17 11:46 White Blood Count 5.6 Red Blood Count 3.60 L Hemoglobin 9.8 L Hematocrit 29.1 L Mean Corpuscular Volume 80.8 L Mean Corpuscular Hemoglobin 27.2 L Mean Corpuscular Hemoglobin Concent 33.7 Red Cell Distribution Width 13.1 Platelet Count 207 Mean Platelet Volume 10.2 Neutrophils % 64.6 Lymphocytes % 23.5 Monocytes % 7.8 Eosinophils % 2.1 Basophils % 0.4 Nucleated Red Blood Cells % 0.0 Neutrophils # 3.6 Lymphocytes # 1.3 Monocytes # 0.4 Eosinophils # 0.1 Basophils # 0.0 Nucleated Red Blood Cells # 0.0 Sodium Level 138 Potassium Level 4.2 Chloride Level 102 Carbon Dioxide Level 23 Anion Gap 17 H Blood Urea Nitrogen 27 H Creatinine 0.86 Glucose Level 261 H Calcium Level 8.6 Bedside Glucose 254 H 306 H Medications Medications Current Medications Cefepime HCl (Maxipime 1gm/50 ml (Pmx)) 50 ml @ 100 mls/hr Q12 IVPB Last administered on 01/11/17 09:54; Admin Dose 100 MLS/HR; Start 01/09/17 at 09:00 Diagnostic Test (Pha) 1 ea 1 ea 02 XX Last administered on 01/11/17 02:11; Admin Dose 1 EA; Start 01/10/17 at 02:00 Vancomycin HCl (Vancocin) 250 ml @ 125 mls/hr Q12H IVPB Last administered on 04:29; Admin Dose 125 MLS/HR; Start 01/09/17 at 05:00 Collagenase (Santyl) 1 applic DAILY TOP Last administered on 01/11/17 09:58; Admin Dose 1 APPLIC; Start 01/09/17 at 12:00 Collagenase (Santyl) 1 applic PRN PRN TOP WOUND CARE; Start 01/09/17 at 10:30 Heparin Sodium (Porcine) (Heparin (5000 Units/0.5 ml)) 5,000 unit BID SC Last administered on 01/10/17 20:03; Admin Dose 5,000 UNIT; Start 01/09/17 at 21:00 Insulin Glargine (Lantus) 15 unit DAILY@08 SC Last administered on 01/11/17 08 :13; Admin Dose 15 UNIT; Start 01/11/17 at 08:00 Miscellaneous Information 1 ea NOTE XX ; Start 01/10/17 at 09:00 Glucose (Glutose) 15 gm Q15M PRN PO DECREASED GLUCOSE; Start 01/10/17 at 09:00 Glucose (Glutose) 22.5 gm Q15M PRN PO DECREASED GLUCOSE; Start 01/10/17 at 09: 00 Dextrose (D50w Syringe) 25 ml Q15M PRN IV DECREASED GLUCOSE; Start 01/10/17 at 09:00 Dextrose (D50w Syringe) 50 ml Q15M PRN IV DECREASED GLUCOSE; Start 01/10/17 at 09:00 Glucagon (Glucagen) 1 mg Q15M PRN IM DECREASED GLUCOSE; Start 01/10/17 at 09:00 Glucose (Glutose) 15 gm Q15M PRN BUCCAL DECREASED GLUCOSE; Start 01/10/17 at 09 :00 Lisinopril (Zestril) 10 mg DAILY GTB Last administered on 01/11/17 09:53; Admin Dose 10 MG; Start 01/10/17 at 09:00 Procedures Procedures PROCEDURE: MRI OF THE RIGHT FOOT. CLINICAL INDICATION: Possible osteomyelitis with wound in the midfoot around the metatarsals with swelling TECHNIQUE: Multiple MRI images of the right foot were obtained in multiple planes utilizing multiple pulse sequences. Images were interpreted on the high- resolution PACS system. COMPARISON: 01/08/2017 FINDINGS: 1st ray: There is a skin ulcer along the dorsal aspect of the foot with edema within the soft tissues over the proximal to mid first metatarsal. The ulcer and edema extends adjacent to the extensor hallucis longus tendon with a small amount of fluid surrounding the tendon fibers in keeping with tenosynovitis. There is no acute fracture, bone marrow edema, or evidence of osteomyelitis within the first metatarsal. There is no drainable abscess. There is mild partial-thickness chondral loss and osseous spurring within the first metatarsophalangeal joint. There is a bipartite medial sesamoid with mild marrow edema. The collateral ligaments are intact. There is no significant joint effusion. 2nd ray: There is no acute fracture or bone marrow edema. There is no evidence for osteomyelitis. The metatarsophalangeal joint is intact. The chondral surfaces are preserved. The collateral ligaments are intact. No significant joint effusion is present. There is dorsal subluxation of the proximal phalanx relative to the metatarsals. 3rd ray through 5th ray: There is no acute fracture or bone marrow edema. There is no evidence for osteomyelitis. The metatarsophalangeal joints are intact. The chondral surfaces are preserved. The collateral ligaments are intact. No significant joint effusion is present. There is dorsal subluxation of the proximal phalanges relative to the metatarsals. MIDFOOT: The tarsometatarsal joints are intact. The Lisfranc's ligament is intact. The naviculocuneiform, talonavicular, and calcaneocuboid joints are intact. Other findings: There is no Milan's neuroma. No plantar fibroma is visualized. The flexor tendons around the foot are unremarkable. There is increased signal with fatty atrophy of the muscles around the foot which may be from edema and/or denervation changes. RPTAT: QQ IMPRESSION: 1. Small skin ulcer within the dorsal subcutaneous soft tissues over the proximal to mid first metatarsal with mild tenosynovitis of the adjacent extensor hallucis longus tendon. No evidence for osteomyelitis or a drainable abscess. 2. 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 3. Hammertoe deformity of the lesser metatarsophalangeal joints. .Ivon Cesar MD, Date Time Electronically viewed and signed by .Ivon Cesar MD, on 01/10/2017 16: 19 TAMIKO HYDE Jan 11, 2017 15:19
[2017-01-11 20:06] VITALS: BP 146/70; RESP 18
[2017-01-11] MEDS: FAMOTIDINE 20 MG TAB PO SCH (21:00)
[2017-01-11] MEDS ORDERED: INSULIN ASPART [NOVOLOG] 3 ML PEN SC ONE (23:45)
[2017-01-12] MEDS ORDERED: INSULIN ASPART [NOVOLOG] 3 ML PEN SC ONE ×2 (02:00)
[2017-01-12 02:08] VITALS: BP 136/60; RESP 18
[2017-01-12] MEDS: ACCU-CHEK XX SCH (02:59)
[2017-01-12] MEDS ORDERED: INSULIN ASPART [NOVOLOG] 3 ML PEN SC PRN ×2 (03:00)
[2017-01-12] MEDS: VANCOMYCIN 1 GM in NS 250 ML IVPB SCH ×2 (04:55→17:13)
[2017-01-12 06:12] LABS: BASOPHILS % 0.4 % (0.0-2.0); EOSINOPHILS # 0.2 10^3/ul (0.0-0.5); HEMATOCRIT 29.7 % (37.0-47.0); HEMOGLOBIN 10.1 g/dl (12.0-16.0); LYMPHOCYTES # 1.5 10^3/ul (0.8-2.9); LYMPHOCYTES % 26.1 % (15.0-51.0); MEAN CORPUSCULAR HEMOGLOBIN 27.7 pg (29.0-33.0); MEAN CORPUSCULAR VOLUME 81.4 fl (82.0-101.0); MEAN PLATELET VOLUME 9.7 fl (7.4-10.4); MONOCYTE # 0.5 10^3/ul (0.3-0.9); NEUTROPHIL # 3.4 10^3/ul (1.6-7.5); NEUTROPHILS % 60.9 % (39.0-77.0); PLATELET COUNT 219 10^3/UL (140-415); RED BLOOD COUNT 3.65 10^6/ul (4.20-5.40); RED CELL DISTRIBUTION WIDTH 12.9 % (11.5-14.5); WHITE BLOOD COUNT 5.6 10^3/ul (4.8-10.8)
[2017-01-12 07:03] LABS: CHOL/HDL RATIO 3.3 RATIO; MAGNESIUM 1.6 mg/dl (1.7-2.5); PHOSPHORUS 4.1 mg/dl (2.5-4.9)
[2017-01-12 07:52] LABS: CREATININE 0.98 mg/dl (0.44-1.00)
[2017-01-12] MEDS: INSULIN GLARGINE [LANtus] 3 ML PEN SC SCH (07:53)
[2017-01-12] MEDS: INSULIN ASPART [NOVOLOG] 3 ML PEN SC SCH ×7 (07:54→20:45)
[2017-01-12 08:01] LABS: POTASSIUM 5.1 mmol/L (3.5-5.1)
[2017-01-12 08:07] VITALS: BP 135/63; RESP 16
[2017-01-12 08:52] LABS: ALBUMIN 2.9 g/dl (3.3-4.9); BILIRUBIN,INDIRECT 0.1 mg/dl (0-1.1); BILIRUBIN,TOTAL 0.1 mg/dl (0.2-1.3); TOTAL PROTEIN 5.9 g/dl (6.1-8.1)
[2017-01-12] MEDS: HEPARIN 5,000 UNIT/0.5 ML VIAL SC SCH ×2 (09:00→20:44)
[2017-01-12] MEDS: FAMOTIDINE 20 MG TAB PO SCH ×2 (09:12→20:42)
[2017-01-12] MEDS: CEFEPIME 1GM/50 ML (PMX) 50 ML IVPB SCH ×2 (09:19→19:48)
[2017-01-12] MEDS: LISINOPRIL 10 MG TAB GTB SCH (09:19)
[2017-01-12] MEDS: COLLAGENASE 30 GM TUBE TOP SCH (09:23)
--- NOTE | 2017-01-12 13:07 | CONS ---
Date/Time of Note Date/Time of Note DATE: 01/12/17 TIME: 13:04 Assessment/Plan Assessment/Plan Chief Complaint/Hosp Course Assessment/Plan Chief Complaint/Hosp Course Alert. Awake. Denies Pain. No Acute Distress. Blood cultures remain negative, wound culture pending MRI revealed no osteomyelitis Antimicrobials: Cefepime vancomycin Physical examination this is a well-nourished well-developed middle-aged woman who is alert in no distress. Head atraumatic normocephalic sclera nonicteric. Neck is supple. Chest rise symmetrical breath sounds clear heart S1-S2 abdomen soft bowel tones present extremities without cyanosis right foot with necrotic wound and some drainage on the top of the foot Assessment: 1. Right foot cellulitis with chronic wound, no evidence of osteomyelitis but mild tenosynovitis 2. Diabetes, poorly controlled Plan: Patient remains stable. Continue antibiotics. Follow wound cultures and follow podiatry recommendations. Local Wound Care. Pain management. Monitor Labs. Discussed with staff. Problems: Consultation Date/Type/Reason Admit Date/Time Jan 08, 2017 at 19:47 Initial Consult Date Type of Consultation: ID Exam/Review of Systems Vital Signs Vitals Vital Signs Date Time Temp Pulse Resp B/P Pulse Ox O2 Delivery O2 Flow Rate FiO2 01/12/17 08:07 98.1 77 16 135/63 95 01/08/17 20:41 Room Air Intake and Output 01/11/17 01/11/17 01/12/17 14:59 22:59 06:59 Intake Total 300 ml 1060 ml 650 ml Balance 300 ml 1060 ml 650 ml Results Result Diagram: 01/12/17 0551 01/12/17 0551 Results 24 hrs Laboratory Tests Test 01/11/17 17:17 01/11/17 20:29 01/11/17 23:04 01/12/17 02:07 Bedside Glucose 243 H 250 H 360 H 283 H Test 01/12/17 05:51 01/12/17 07:49 01/12/17 12:10 White Blood Count 5.6 Red Blood Count 3.65 L Hemoglobin 10.1 L Hematocrit 29.7 L Mean Corpuscular Volume 81.4 L Mean Corpuscular Hemoglobin 27.7 L Mean Corpuscular Hemoglobin Concent 34.0 Red Cell Distribution Width 12.9 Platelet Count 219 Mean Platelet Volume 9.7 Neutrophils % 60.9 Lymphocytes % 26.1 Monocytes % 8.0 Eosinophils % 3.0 Basophils % 0.4 Nucleated Red Blood Cells % 0.0 Neutrophils # 3.4 Lymphocytes # 1.5 Monocytes # 0.5 Eosinophils # 0.2 Basophils # 0.0 Nucleated Red Blood Cells # 0.0 Sodium Level 140 Potassium Level 5.1 Chloride Level 104 Carbon Dioxide Level 26 Anion Gap 15 Blood Urea Nitrogen 28 H Creatinine 0.98 Glucose Level 234 H Calcium Level 9.0 Phosphorus Level 4.1 Magnesium Level 1.6 L Total Bilirubin 0.1 L Direct Bilirubin 0.00 Indirect Bilirubin 0.1 Aspartate Amino Transf (AST/SGOT) 81 H Alanine Aminotransferase (ALT/SGPT) 75 H Alkaline Phosphatase 409 H Total Protein 5.9 L Albumin 2.9 L Triglycerides Level 222 H Cholesterol Level 151 LDL Cholesterol, Calculated 62 HDL Cholesterol 45 Cholesterol/HDL Ratio 3.3 Bedside Glucose 283 H 253 H Medications Medications Current Medications Cefepime HCl (Maxipime 1gm/50 ml (Pmx)) 50 ml @ 100 mls/hr Q12 IVPB Last administered on 01/12/17 09:19; Admin Dose 100 MLS/HR; Start 01/09/17 at 09:00 Diagnostic Test (Pha) 1 ea 1 ea 02 XX Last administered on 01/12/17 02:59; Admin Dose 1 EA; Start 01/10/17 at 02:00 Vancomycin HCl (Vancocin) 250 ml @ 125 mls/hr Q12H IVPB Last administered on 04:55; Admin Dose 125 MLS/HR; Start 01/09/17 at 05:00 Collagenase (Santyl) 1 applic DAILY TOP Last administered on 01/12/17 09:23; Admin Dose 1 APPLIC; Start 01/09/17 at 12:00 Collagenase (Santyl) 1 applic PRN PRN TOP WOUND CARE; Start 01/09/17 at 10:30 Heparin Sodium (Porcine) (Heparin (5000 Units/0.5 ml)) 5,000 unit BID SC Last administered on 01/11/17 21:00; Admin Dose 5,000 UNIT; Start 01/09/17 at 21:00 Miscellaneous Information 1 ea NOTE XX ; Start 01/10/17 at 09:00 Glucose (Glutose) 15 gm Q15M PRN PO DECREASED GLUCOSE; Start 01/10/17 at 09:00 Glucose (Glutose) 22.5 gm Q15M PRN PO DECREASED GLUCOSE; Start 01/10/17 at 09: 00 Dextrose (D50w Syringe) 25 ml Q15M PRN IV DECREASED GLUCOSE; Start 01/10/17 at 09:00 Dextrose (D50w Syringe) 50 ml Q15M PRN IV DECREASED GLUCOSE; Start 01/10/17 at 09:00 Glucagon (Glucagen) 1 mg Q15M PRN IM DECREASED GLUCOSE; Start 01/10/17 at 09:00 Glucose (Glutose) 15 gm Q15M PRN BUCCAL DECREASED GLUCOSE; Start 01/10/17 at 09 :00 Lisinopril (Zestril) 10 mg DAILY GTB Last administered on 01/12/17 09:19; Admin Dose 10 MG; Start 01/10/17 at 09:00 Insulin Glargine (Lantus) 18 unit DAILY@08 SC Last administered on 01/12/17 07 :53; Admin Dose 18 UNIT; Start 01/12/17 at 08:00 Famotidine (Pepcid) 20 mg BID PO Last administered on 01/12/17 09:12; Admin Dose 20 MG; Start 01/11/17 at 21:00 MAYUR GUTIERREZ NP Jan 12, 2017 13:07
[2017-01-12 14:58] VITALS: BP 128/60; RESP 16
--- NOTE | 2017-01-12 16:52 | PN ---
Date/Time of Note Date/Time of Note DATE: 01/12/17 TIME: 16:46 Assessment/Plan VTE Prophylaxis VTE Prophylaxis Intervention: heparin Lines/Catheters IV Catheter Type (from Nrsg): Peripheral IV Assessment/Plan Assessment/Plan 51-year-old female: 1. Right foot infected diabetic ulcer with cellulitis of the right foot, infectious disease following, patient on vancomycin and cefepime. Wound culture with enterococcus and Luciana. MRI with no signs of abscess or osteomyelitis. Follow further ID recommendation regarding antibiotic adjustments pending. Podiatry consult pending with Dr. Navarro, he will be seeing the patient today for further recommendations. Continue wound care. 2. Diabetes mellitus, uncontrolled with hemoglobin A1c above range. Continue current regimen of Lantus to 18 units every morning and insulin aspart 6 units q. before meals. Continue sliding scale insulin. We will resume metformin today Diabetic education pending. Prophylaxis: Heparin for DVT prophylaxis, Pepcid for GI prophylaxis Disposition: Wound care and IV antibiotic, podiatry evaluation pending, if no surgical intervention discharge planning within 24 hours with antibiotic recommendation from infectious disease and wound care. Subjective 24 Hr Interval Summary Free Text/Dictation Patient doing well, no complaints, no pain from her right foot. Currently on IV antibiotics cefepime and vancomycin. Based on wound culture I will ask ID to streamline her antibiotic regimen for discharge planning. Patient to see podiatry hopefully tonight in-house and if no surgical debridement needed will plan for discharge in the next 24 hours. Resuming metformin today as blood sugar still in the 200s, diabetic education pending Exam/Review of Systems Vital Signs Vitals Vital Signs Date Time Temp Pulse Resp B/P Pulse Ox O2 Delivery O2 Flow Rate FiO2 01/12/17 14:58 98.3 82 16 128/60 95 01/08/17 20:41 Room Air Intake and Output 01/11/17 01/11/17 01/12/17 15:00 23:00 07:00 Intake Total 50 ml 1060 ml 650 ml Balance 50 ml 1060 ml 650 ml Exam Constitutional: alert, oriented, other (Irish-speaking), well developed Respiratory: clear to auscultation, normal air movement Cardiovascular: nl pulses, regular rate and rhythm Gastrointestinal: non-tender, soft Musculoskeletal: other (Right foot with dressing in place. No tenderness to palpation or erythema seen) Extremities: normal pulses, other (No edema, clubbing or cyanosis) Neurological: SENIOR SYSTEM OPERATOR II-XII intact, nl mental status, nl strength Results Result Diagram: 01/12/17 0551 01/12/17 0551 Results 24 hrs Laboratory Tests Test 01/11/17 17:17 01/11/17 20:29 01/11/17 23:04 01/12/17 02:07 Bedside Glucose 243 H 250 H 360 H 283 H Test 01/12/17 05:51 01/12/17 07:49 01/12/17 12:10 White Blood Count 5.6 Red Blood Count 3.65 L Hemoglobin 10.1 L Hematocrit 29.7 L Mean Corpuscular Volume 81.4 L Mean Corpuscular Hemoglobin 27.7 L Mean Corpuscular Hemoglobin Concent 34.0 Red Cell Distribution Width 12.9 Platelet Count 219 Mean Platelet Volume 9.7 Neutrophils % 60.9 Lymphocytes % 26.1 Monocytes % 8.0 Eosinophils % 3.0 Basophils % 0.4 Nucleated Red Blood Cells % 0.0 Neutrophils # 3.4 Lymphocytes # 1.5 Monocytes # 0.5 Eosinophils # 0.2 Basophils # 0.0 Nucleated Red Blood Cells # 0.0 Sodium Level 140 Potassium Level 5.1 Chloride Level 104 Carbon Dioxide Level 26 Anion Gap 15 Blood Urea Nitrogen 28 H Creatinine 0.98 Glucose Level 234 H Calcium Level 9.0 Phosphorus Level 4.1 Magnesium Level 1.6 L Total Bilirubin 0.1 L Direct Bilirubin 0.00 Indirect Bilirubin 0.1 Aspartate Amino Transf (AST/SGOT) 81 H Alanine Aminotransferase (ALT/SGPT) 75 H Alkaline Phosphatase 409 H Total Protein 5.9 L Albumin 2.9 L Triglycerides Level 222 H Cholesterol Level 151 LDL Cholesterol, Calculated 62 HDL Cholesterol 45 Cholesterol/HDL Ratio 3.3 Bedside Glucose 283 H 253 H Medications Medications Current Medications Cefepime HCl (Maxipime 1gm/50 ml (Pmx)) 50 ml @ 100 mls/hr Q12 IVPB Last administered on 01/12/17 09:19; Admin Dose 100 MLS/HR; Start 01/09/17 at 09:00 Diagnostic Test (Pha) 1 ea 1 ea 02 XX Last administered on 01/12/17 02:59; Admin Dose 1 EA; Start 01/10/17 at 02:00 Vancomycin HCl (Vancocin) 250 ml @ 125 mls/hr Q12H IVPB Last administered on 04:55; Admin Dose 125 MLS/HR; Start 01/09/17 at 05:00 Collagenase (Santyl) 1 applic DAILY TOP Last administered on 01/12/17 09:23; Admin Dose 1 APPLIC; Start 01/09/17 at 12:00 Collagenase (Santyl) 1 applic PRN PRN TOP WOUND CARE; Start 01/09/17 at 10:30 Heparin Sodium (Porcine) (Heparin (5000 Units/0.5 ml)) 5,000 unit BID SC Last administered on 01/11/17 21:00; Admin Dose 5,000 UNIT; Start 01/09/17 at 21:00 Miscellaneous Information 1 ea NOTE XX ; Start 01/10/17 at 09:00 Glucose (Glutose) 15 gm Q15M PRN PO DECREASED GLUCOSE; Start 01/10/17 at 09:00 Glucose (Glutose) 22.5 gm Q15M PRN PO DECREASED GLUCOSE; Start 01/10/17 at 09: 00 Dextrose (D50w Syringe) 25 ml Q15M PRN IV DECREASED GLUCOSE; Start 01/10/17 at 09:00 Dextrose (D50w Syringe) 50 ml Q15M PRN IV DECREASED GLUCOSE; Start 01/10/17 at 09:00 Glucagon (Glucagen) 1 mg Q15M PRN IM DECREASED GLUCOSE; Start 01/10/17 at 09:00 Glucose (Glutose) 15 gm Q15M PRN BUCCAL DECREASED GLUCOSE; Start 01/10/17 at 09 :00 Lisinopril (Zestril) 10 mg DAILY GTB Last administered on 01/12/17 09:19; Admin Dose 10 MG; Start 01/10/17 at 09:00 Insulin Glargine (Lantus) 18 unit DAILY@08 SC Last administered on 01/12/17 07 :53; Admin Dose 18 UNIT; Start 01/12/17 at 08:00 Famotidine (Pepcid) 20 mg BID PO Last administered on 01/12/17 09:12; Admin Dose 20 MG; Start 01/11/17 at 21:00 Miscellaneous Information (*Rx Drug Level Order Reminder*) 1 ONCE ONCE XX ; Start 01/13/17 at 04:00; Stop 01/13/17 at 04:01 TAMIKO HYDE Jan 12, 2017 16:52
--- NOTE | 2017-01-12 16:56 | CONS ---
Date/Time of Note Date/Time of Note DATE: 01/12/17 TIME: 16:54 Assessment/Plan Assessment/Plan Problems: (1) Cellulitis Status: Acute Qualifiers: Qualified Code: L03.115 - Cellulitis of right lower extremity (2) Uncontrolled diabetes mellitus Status: Acute Qualifiers: Qualified Code: E11.65 - Uncontrolled type 2 diabetes mellitus with hyperglycemia, with long-term current use of insulin (3) Diabetic ulcer of right foot Status: Acute Qualifiers: Qualified Code: E11.621 - Diabetic ulcer of right midfoot associated with type 2 diabetes mellitus, with fat layer exposed (4) Non-pressure chronic ulcer of other part of right foot with fat layer exposed Additional Assessment/Plan An MRI will be necessary to evaluate further and do surgical planning if necessary. I will review the MRI when available. For now dressing changes to be done daily. Nonweightbearing on the right foot. Patient will be scheduled for surgery pending MRI. Thank you very much for involving me in the care of this patient. Consultation Date/Type/Reason Admit Date/Time Jan 08, 2017 at 19:47 Date of Consultation: Jan 12, 2017 Type of Consultation: Foot and ankle surgery Reason for Consultation Right foot open wound with possible abscess; question regarding surgical management Hx of Present Illness Thank you very much for involving me in the care of this patient. As you know this is a 51-year-old female patient with diabetes mellitus presenting emergency room complaining of right foot infection. Patient was admitted to the hospital and I was consulted for evaluation and treatment. Patient reports no pain in her right foot and denies fever and chills. Denies trauma to the right foot. Patient denies prior foot care by a injection specialist. Patient has been placed on IV antibiotics and the question is whether or not she needs surgical management. Constitutional: no complaints Psychological: nl mood/affect Past Medical History As per history of present illness. Past Surgical History As per history of present illness. Social History As per history of present illness. Smoking Status: Never smoker Exam/Review of Systems Vital Signs Vitals Vital Signs Date Time Temp Pulse Resp B/P Pulse Ox O2 Delivery O2 Flow Rate FiO2 01/12/17 14:58 98.3 82 16 128/60 95 01/08/17 20:41 Room Air Intake and Output 01/11/17 01/11/17 01/12/17 15:00 23:00 07:00 Intake Total 50 ml 1060 ml 650 ml Balance 50 ml 1060 ml 650 ml Exam Patient is in no acute distress laying supine in bed. Dressing was removed from the right. There is an open wound of the dorsal aspect of the right foot with necrotic tissue and edema of the right foot. Surrounding erythema noted. There is no tenderness to palpation of the foot no malodor. Dorsalis pedis and posterior tibial pulses weak. Sensation is decreased to sharp, dull, vibratory and temperature stimuli. Labs reviewed. MRI pending. X-rays reviewed Results Result Diagram: 01/12/17 0551 01/12/17 0551 Results 24 hrs Laboratory Tests Test 01/11/17 17:17 01/11/17 20:29 01/11/17 23:04 01/12/17 02:07 Bedside Glucose 243 H 250 H 360 H 283 H Test 01/12/17 05:51 01/12/17 07:49 01/12/17 12:10 White Blood Count 5.6 Red Blood Count 3.65 L Hemoglobin 10.1 L Hematocrit 29.7 L Mean Corpuscular Volume 81.4 L Mean Corpuscular Hemoglobin 27.7 L Mean Corpuscular Hemoglobin Concent 34.0 Red Cell Distribution Width 12.9 Platelet Count 219 Mean Platelet Volume 9.7 Neutrophils % 60.9 Lymphocytes % 26.1 Monocytes % 8.0 Eosinophils % 3.0 Basophils % 0.4 Nucleated Red Blood Cells % 0.0 Neutrophils # 3.4 Lymphocytes # 1.5 Monocytes # 0.5 Eosinophils # 0.2 Basophils # 0.0 Nucleated Red Blood Cells # 0.0 Sodium Level 140 Potassium Level 5.1 Chloride Level 104 Carbon Dioxide Level 26 Anion Gap 15 Blood Urea Nitrogen 28 H Creatinine 0.98 Glucose Level 234 H Calcium Level 9.0 Phosphorus Level 4.1 Magnesium Level 1.6 L Total Bilirubin 0.1 L Direct Bilirubin 0.00 Indirect Bilirubin 0.1 Aspartate Amino Transf (AST/SGOT) 81 H Alanine Aminotransferase (ALT/SGPT) 75 H Alkaline Phosphatase 409 H Total Protein 5.9 L Albumin 2.9 L Triglycerides Level 222 H Cholesterol Level 151 LDL Cholesterol, Calculated 62 HDL Cholesterol 45 Cholesterol/HDL Ratio 3.3 Bedside Glucose 283 H 253 H Medications Medications Current Medications Cefepime HCl (Maxipime 1gm/50 ml (Pmx)) 50 ml @ 100 mls/hr Q12 IVPB Last administered on 01/12/17 09:19; Admin Dose 100 MLS/HR; Start 01/09/17 at 09:00 Diagnostic Test (Pha) 1 ea 1 ea 02 XX Last administered on 01/12/17 02:59; Admin Dose 1 EA; Start 01/10/17 at 02:00 Vancomycin HCl (Vancocin) 250 ml @ 125 mls/hr Q12H IVPB Last administered on 04:55; Admin Dose 125 MLS/HR; Start 01/09/17 at 05:00 Collagenase (Santyl) 1 applic DAILY TOP Last administered on 01/12/17 09:23; Admin Dose 1 APPLIC; Start 01/09/17 at 12:00 Collagenase (Santyl) 1 applic PRN PRN TOP WOUND CARE; Start 01/09/17 at 10:30 Heparin Sodium (Porcine) (Heparin (5000 Units/0.5 ml)) 5,000 unit BID SC Last administered on 01/11/17 21:00; Admin Dose 5,000 UNIT; Start 01/09/17 at 21:00 Miscellaneous Information 1 ea NOTE XX ; Start 01/10/17 at 09:00 Glucose (Glutose) 15 gm Q15M PRN PO DECREASED GLUCOSE; Start 01/10/17 at 09:00 Glucose (Glutose) 22.5 gm Q15M PRN PO DECREASED GLUCOSE; Start 01/10/17 at 09: 00 Dextrose (D50w Syringe) 25 ml Q15M PRN IV DECREASED GLUCOSE; Start 01/10/17 at 09:00 Dextrose (D50w Syringe) 50 ml Q15M PRN IV DECREASED GLUCOSE; Start 01/10/17 at 09:00 Glucagon (Glucagen) 1 mg Q15M PRN IM DECREASED GLUCOSE; Start 01/10/17 at 09:00 Glucose (Glutose) 15 gm Q15M PRN BUCCAL DECREASED GLUCOSE; Start 01/10/17 at 09 :00 Lisinopril (Zestril) 10 mg DAILY GTB Last administered on 01/12/17 09:19; Admin Dose 10 MG; Start 01/10/17 at 09:00 Insulin Glargine (Lantus) 18 unit DAILY@08 SC Last administered on 01/12/17 07 :53; Admin Dose 18 UNIT; Start 01/12/17 at 08:00 Famotidine (Pepcid) 20 mg BID PO Last administered on 01/12/17t 09:12; Admin Dose 20 MG; Start 01/11/17 at 21:00 Miscellaneous Information (*Rx Drug Level Order Reminder*) 1 ONCE ONCE XX ; Start 01/13/17 at 04:00; Stop 01/13/17 at 04:01 MARYELLEN RODRIGUEZ DPM Jan 12, 2017 16:56
[2017-01-12] MEDS: metFORMIN 500 MG TAB PO SCH (17:19)
[2017-01-12] MEDS ORDERED: MAGNESIUM SULFATE 2 GM/50 ML 50 ML IVPB ONE (18:00)
[2017-01-13 02:00] VITALS: BP 150/69; RESP 18
[2017-01-13] MEDS: ACCU-CHEK XX SCH (02:00)
[2017-01-13 04:28] LABS: BASOPHILS % 0.6 % (0.0-2.0); EOSINOPHILS # 0.2 10^3/ul (0.0-0.5); EOSINOPHILS % 2.4 % (0.0-7.0); HEMATOCRIT 29.2 % (37.0-47.0); HEMOGLOBIN 9.8 g/dl (12.0-16.0); LYMPHOCYTES # 1.7 10^3/ul (0.8-2.9); MEAN CORPUSCULAR HEMOGLOBIN 27.5 pg (29.0-33.0); MEAN CORPUSCULAR HGB CONC 33.6 g/dl (32.0-37.0); MEAN CORPUSCULAR VOLUME 81.8 fl (82.0-101.0); MEAN PLATELET VOLUME 9.6 fl (7.4-10.4); MONOCYTE # 0.5 10^3/ul (0.3-0.9); MONOCYTES % 8.5 % (0.0-11.0); NEUTROPHIL # 3.8 10^3/ul (1.6-7.5); NEUTROPHILS % 59.8 % (39.0-77.0); PLATELET COUNT 228 10^3/UL (140-415); RED BLOOD COUNT 3.57 10^6/ul (4.20-5.40); RED CELL DISTRIBUTION WIDTH 13.1 % (11.5-14.5); WHITE BLOOD COUNT 6.3 10^3/ul (4.8-10.8)
[2017-01-13 04:53] LABS: CALCIUM 8.9 mg/dl (8.4-10.2); CREATININE 1.03 mg/dl (0.44-1.00); POTASSIUM 4.7 mmol/L (3.5-5.1)
[2017-01-13] MEDS ORDERED: VANCOMYCIN 750 MG in SOD CHLORIDE 0.9% 150 ML IVPB SCH (07:00)
[2017-01-13 08:00] VITALS: BP 124/64; RESP 18
[2017-01-13] MEDS: FAMOTIDINE 20 MG TAB PO SCH ×2 (08:58→20:43)
[2017-01-13] MEDS: LISINOPRIL 10 MG TAB GTB SCH (08:59)
[2017-01-13] MEDS: metFORMIN 500 MG TAB PO SCH ×2 (08:59→17:51)
[2017-01-13] MEDS: INSULIN ASPART [NOVOLOG] 3 ML PEN SC SCH ×7 (09:00→20:43)
[2017-01-13] MEDS: INSULIN GLARGINE [LANtus] 3 ML PEN SC SCH (09:01)
[2017-01-13] MEDS: HEPARIN 5,000 UNIT/0.5 ML VIAL SC SCH ×2 (09:02→20:44)
[2017-01-13] MEDS: CEFEPIME 1GM/50 ML (PMX) 50 ML IVPB SCH ×2 (09:02→20:43)
[2017-01-13] MEDS: COLLAGENASE 30 GM TUBE TOP SCH (09:54)
--- NOTE | 2017-01-13 10:19 | PN ---
Date/Time of Note Date/Time of Note DATE: 01/13/17 TIME: 10:09 Assessment/Plan VTE Prophylaxis VTE Prophylaxis Intervention: SCD's Lines/Catheters IV Catheter Type (from Nrsg): Saline Lock Assessment/Plan Assessment/Plan 51-year-old female: 1. Right foot infected diabetic ulcer with cellulitis of the right foot, infectious disease following, patient on vancomycin and cefepime. Wound culture with enterococcus and Luciana. MRI with no signs of abscess or osteomyelitis. Discussed with Dr Navarro yesterday, he will schedule debridement of the wound Follow further ID recommendation regarding antibiotic adjustments pending. Continue wound care. 2. Diabetes mellitus, uncontrolled with hemoglobin A1c above range. Continue current regimen of Lantus to 18 units every morning and insulin aspart 6 units q. before meals. Continue sliding scale insulin. Increase metformin to 1000 mg po bid. Diabetic education pending. Prophylaxis: Heparin for DVT prophylaxis, Pepcid for GI prophylaxis Disposition: Wound care and IV antibiotic, podiatry planning for debridement. Subjective 24 Hr Interval Summary Free Text/Dictation Patient doing Ok and awaiting debridement of right foot wound by Dr Navarro from podiatry Exam/Review of Systems Vital Signs Vitals Vital Signs Date Time Temp Pulse Resp B/P Pulse Ox O2 Delivery O2 Flow Rate FiO2 01/13/17 08:00 98.0 78 18 124/64 99 Intake and Output 01/12/17 01/12/17 01/13/17 15:00 23:00 07:00 Intake Total 50 ml 1530 ml 480 ml Balance 50 ml 1530 ml 480 ml Exam Constitutional: alert, oriented, well developed Respiratory: clear to auscultation, normal air movement Cardiovascular: nl pulses, regular rate and rhythm Gastrointestinal: non-tender, soft Musculoskeletal: nl gait and stance, other (right foot wound, dressing in place , no edema or erythema seen ) Extremities: normal pulses, other (no edema, clubibng or cyanosis ) Neurological: VEGETABLE FARMER II-XII intact, nl mental status, nl speech, nl strength Results Result Diagram: 01/13/17 0416 01/13/17 0416 Results 24 hrs Laboratory Tests Test 01/12/17 12:10 01/12/17 17:14 01/12/17 20:40 01/13/17 02:01 Bedside Glucose 253 H 265 H 287 H 231 H Test 01/13/17 04:16 01/13/17 07:53 White Blood Count 6.3 Red Blood Count 3.57 L Hemoglobin 9.8 L Hematocrit 29.2 L Mean Corpuscular Volume 81.8 L Mean Corpuscular Hemoglobin 27.5 L Mean Corpuscular Hemoglobin Concent 33.6 Red Cell Distribution Width 13.1 Platelet Count 228 Mean Platelet Volume 9.6 Neutrophils % 59.8 Lymphocytes % 26.0 Monocytes % 8.5 Eosinophils % 2.4 Basophils % 0.6 Nucleated Red Blood Cells % 0.0 Neutrophils # 3.8 Lymphocytes # 1.7 Monocytes # 0.5 Eosinophils # 0.2 Basophils # 0.0 Nucleated Red Blood Cells # 0.0 Sodium Level 140 Potassium Level 4.7 Chloride Level 106 Carbon Dioxide Level 23 Anion Gap 16 Blood Urea Nitrogen 28 H Creatinine 1.03 H Glucose Level 248 H Calcium Level 8.9 Vancomycin Level Trough 19.2 Bedside Glucose 267 H Medications Medications Current Medications Cefepime HCl (Maxipime 1gm/50 ml (Pmx)) 50 ml @ 100 mls/hr Q12 IVPB Last administered on 01/13/17 09:02; Admin Dose 100 MLS/HR; Start 01/09/17 at 09:00 Diagnostic Test (Pha) (Accu-Chek) 1 ea 02 XX Last administered on 01/12/17 02: 59; Admin Dose 1 EA; Start 01/10/17 at 02:00 Collagenase (Santyl) 1 applic DAILY TOP Last administered on 01/13/17 09:54; Admin Dose 1 APPLIC; Start 01/09/17 at 12:00 Collagenase (Santyl) 1 applic PRN PRN TOP WOUND CARE; Start 01/09/17 at 10:30 Heparin Sodium (Porcine) (Heparin (5000 Units/0.5 ml)) 5,000 unit BID SC Last administered on 01/13/17 09:02; Admin Dose 5,000 UNIT; Start 01/09/17 at 21:00 Miscellaneous Information 1 ea NOTE XX ; Start 01/10/17 at 09:00 Glucose (Glutose) 15 gm Q15M PRN PO DECREASED GLUCOSE; Start 01/10/17 at 09:00 Glucose (Glutose) 22.5 gm Q15M PRN PO DECREASED GLUCOSE; Start 01/10/17 at 09: 00 Dextrose (D50w Syringe) 25 ml Q15M PRN IV DECREASED GLUCOSE; Start 01/10/17 at 09:00 Dextrose (D50w Syringe) 50 ml Q15M PRN IV DECREASED GLUCOSE; Start 01/10/17 at 09:00 Glucagon (Glucagen) 1 mg Q15M PRN IM DECREASED GLUCOSE; Start 01/10/17 at 09:00 Glucose (Glutose) 15 gm Q15M PRN BUCCAL DECREASED GLUCOSE; Start 01/10/17 at 09 :00 Lisinopril (Zestril) 10 mg DAILY GTB Last administered on 01/13/17 08:59; Admin Dose 10 MG; Start 01/10/17 at 09:00 Insulin Glargine (Lantus) 18 unit DAILY@08 SC Last administered on 01/13/17 09 :01; Admin Dose 18 UNIT; Start 01/12/17 at 08:00 Famotidine 20 mg 20 mg BID PO Last administered on 01/13/17 08:58; Admin Dose 20 MG; Start 01/11/17 at 21:00 Vancomycin HCl/ Sodium Chloride (Vancocin/NS) 250 ml @ 83.333 mls/ hr Q24H IVPB ; Start 01/13/17 at 23:00 TAMIKO HYDE Jan 13, 2017 10:19
[2017-01-13 14:00] VITALS: BP 115/63; RESP 18
[2017-01-13 19:54] VITALS: BP 142/67; RESP 18
--- NOTE | 2017-01-13 19:55 | CONS ---
Date/Time of Note Date/Time of Note DATE: 01/13/17 TIME: 19:48 Assessment/Plan Assessment/Plan Chief Complaint/Hosp Course ID PROGRESS NOTE 24H INTERVAL SUMMARY * Stable, NAD, awake, chart reviewed * MRI revealed no osteomyelitis * Antimicrobials: Cefepime vancomycin * Blood cultures remain negative, wound culture WOUND CULTURE Preliminary Organism 1 YEAST QUANTITY 1+ Organism 2 ENTEROCOCCUS SPECIES QUANTITY SCANT GROWTH Organism 3 STAPHYLOCOCCUS SPECIES QUANTITY SCANT GROWTH ENT SPS M.I.C. RX --------- --- AMPICILLIN <=2 S PENICILLIN-G 2 S VANCOMYCIN 1 S Physical examination well-nourished well-developed middle-aged woman who is alert in no distress. Head atraumatic normocephalic sclera nonicteric. Neck is supple. Chest rise symmetrical breath sounds clear heart S1-S2 abdomen soft bowel tones present extremities without cyanosis right foot with necrotic wound and some drainage on the top of the foot Assessment: 1. Right foot cellulitis with chronic wound, no evidence of osteomyelitis but mild tenosynovitis * Wound Cx: WOUND CULTURE Preliminary Organism 1 YEAST QUANTITY 1+ Organism 2 ENTEROCOCCUS SPECIES QUANTITY SCANT GROWTH Organism 3 STAPHYLOCOCCUS SPECIES QUANTITY SCANT GROWTH 2. Diabetes, poorly controlled 3. DM Peripheral neuropathy 4. Mild renal insufficiency Plan: Continue antibiotics Vanco IV + Cefepime + add VFEND (renal safe), + swab nares for MRSA . Problems: Consultation Date/Type/Reason Admit Date/Time Jan 08, 2017 at 19:47 Initial Consult Date Type of Consultation: ID Exam/Review of Systems Vital Signs Vitals Vital Signs Date Time Temp Pulse Resp B/P Pulse Ox O2 Delivery O2 Flow Rate FiO2 01/13/17 14:00 98.5 77 18 115/63 97 Intake and Output 01/12/17 01/12/17 01/13/17 15:00 23:00 07:00 Intake Total 50 ml 1530 ml 480 ml Balance 50 ml 1530 ml 480 ml Results Result Diagram: 01/13/17 0416 01/13/17 0416 Results 24 hrs Laboratory Tests Test 01/12/17 20:40 01/13/17 02:01 01/13/17 04:16 01/13/17 07:53 Bedside Glucose 287 H 231 H 267 H White Blood Count 6.3 Red Blood Count 3.57 L Hemoglobin 9.8 L Hematocrit 29.2 L Mean Corpuscular Volume 81.8 L Mean Corpuscular Hemoglobin 27.5 L Mean Corpuscular Hemoglobin Concent 33.6 Red Cell Distribution Width 13.1 Platelet Count 228 Mean Platelet Volume 9.6 Neutrophils % 59.8 Lymphocytes % 26.0 Monocytes % 8.5 Eosinophils % 2.4 Basophils % 0.6 Nucleated Red Blood Cells % 0.0 Neutrophils # 3.8 Lymphocytes # 1.7 Monocytes # 0.5 Eosinophils # 0.2 Basophils # 0.0 Nucleated Red Blood Cells # 0.0 Sodium Level 140 Potassium Level 4.7 Chloride Level 106 Carbon Dioxide Level 23 Anion Gap 16 Blood Urea Nitrogen 28 H Creatinine 1.03 H Glucose Level 248 H Calcium Level 8.9 Vancomycin Level Trough 19.2 Test 01/13/17 11:33 01/13/17 17:27 Bedside Glucose 288 H 144 Medications Medications Current Medications Cefepime HCl (Maxipime 1gm/50 ml (Pmx)) 50 ml @ 100 mls/hr Q12 IVPB Last administered on 01/13/17 09:02; Admin Dose 100 MLS/HR; Start 01/09/17 at 09:00 Diagnostic Test (Pha) (Accu-Chek) 1 ea 02 XX Last administered on 01/12/17 02: 59; Admin Dose 1 EA; Start 01/10/17 at 02:00 Collagenase (Santyl) 1 applic DAILY TOP Last administered on 01/13/17 09:54; Admin Dose 1 APPLIC; Start 01/09/17 at 12:00 Collagenase (Santyl) 1 applic PRN PRN TOP WOUND CARE; Start 01/09/17 at 10:30 Heparin Sodium (Porcine) (Heparin (5000 Units/0.5 ml)) 5,000 unit BID SC Last administered on 01/13/17 09:02; Admin Dose 5,000 UNIT; Start 01/09/17 at 21:00 Miscellaneous Information 1 ea NOTE XX ; Start 01/10/17 at 09:00 Glucose (Glutose) 15 gm Q15M PRN PO DECREASED GLUCOSE; Start 01/10/17 at 09:00 Glucose (Glutose) 22.5 gm Q15M PRN PO DECREASED GLUCOSE; Start 01/10/17 at 09: 00 Dextrose (D50w Syringe) 25 ml Q15M PRN IV DECREASED GLUCOSE; Start 01/10/17 at 09:00 Dextrose (D50w Syringe) 50 ml Q15M PRN IV DECREASED GLUCOSE; Start 01/10/17 at 09:00 Glucagon (Glucagen) 1 mg Q15M PRN IM DECREASED GLUCOSE; Start 01/10/17 at 09:00 Glucose (Glutose) 15 gm Q15M PRN BUCCAL DECREASED GLUCOSE; Start 01/10/17 at 09 :00 Lisinopril (Zestril) 10 mg DAILY GTB Last administered on 01/13/17 08:59; Admin Dose 10 MG; Start 01/10/17 at 09:00 Insulin Glargine (Lantus) 18 unit DAILY@08 SC Last administered on 01/13/17 09 :01; Admin Dose 18 UNIT; Start 01/12/17 at 08:00 Famotidine 20 mg 20 mg BID PO Last administered on 01/13/17 08:58; Admin Dose 20 MG; Start 01/11/17 at 21:00 Vancomycin HCl/ Sodium Chloride (Vancocin/NS) 250 ml @ 83.333 mls/ hr Q24H IVPB ; Start 01/13/17 at 23:00 RUPAL COHEN NP Jan 13, 2017 19:55
[2017-01-13] MEDS: VORICONAZOLE 200 MG TAB PO SCH (20:46)
[2017-01-13] MEDS: VANCOMYCIN 1.25 GM in SOD CHLORIDE 0.9% 250 ML IVPB SCH (22:22)
[2017-01-14] MEDS: ACCU-CHEK XX SCH (02:00)
[2017-01-14 02:10] VITALS: BP 137/63; RESP 17
[2017-01-14 05:41] LABS: BASOPHILS % 0.5 % (0.0-2.0); EOSINOPHILS # 0.1 10^3/ul (0.0-0.5); EOSINOPHILS % 2.2 % (0.0-7.0); HEMATOCRIT 29.7 % (37.0-47.0); HEMOGLOBIN 9.7 g/dl (12.0-16.0); LYMPHOCYTES # 1.6 10^3/ul (0.8-2.9); LYMPHOCYTES % 26.3 % (15.0-51.0); MEAN CORPUSCULAR HEMOGLOBIN 27.4 pg (29.0-33.0); MEAN CORPUSCULAR HGB CONC 32.7 g/dl (32.0-37.0); MEAN CORPUSCULAR VOLUME 83.9 fl (82.0-101.0); MEAN PLATELET VOLUME 9.9 fl (7.4-10.4); MONOCYTE # 0.5 10^3/ul (0.3-0.9); MONOCYTES % 8.2 % (0.0-11.0); NEUTROPHIL # 3.6 10^3/ul (1.6-7.5); NEUTROPHILS % 59.5 % (39.0-77.0); PLATELET COUNT 240 10^3/UL (140-415); RED BLOOD COUNT 3.54 10^6/ul (4.20-5.40); RED CELL DISTRIBUTION WIDTH 13.3 % (11.5-14.5)
[2017-01-14 06:08] LABS: MAGNESIUM 1.7 mg/dl (1.7-2.5); PHOSPHORUS 4.5 mg/dl (2.5-4.9)
[2017-01-14 06:23] LABS: CALCIUM 9.1 mg/dl (8.4-10.2); CREATININE 0.91 mg/dl (0.44-1.00); POTASSIUM 5.6 mmol/L (3.5-5.1)
[2017-01-14 08:00] VITALS: BP 156/76; RESP 20
[2017-01-14] MEDS: metFORMIN 500 MG TAB PO SCH ×2 (08:08→18:05)
[2017-01-14] MEDS: INSULIN ASPART [NOVOLOG] 3 ML PEN SC SCH ×7 (08:09→20:09)
[2017-01-14] MEDS: INSULIN GLARGINE [LANtus] 3 ML PEN SC SCH (08:11)
[2017-01-14] MEDS: LISINOPRIL 10 MG TAB GTB SCH (09:26)
[2017-01-14] MEDS: VORICONAZOLE 200 MG TAB PO SCH ×2 (09:26→20:07)
[2017-01-14] MEDS: FAMOTIDINE 20 MG TAB PO SCH ×2 (09:26→20:07)
[2017-01-14] MEDS: CEFEPIME 1GM/50 ML (PMX) 50 ML IVPB SCH ×2 (09:26→20:07)
[2017-01-14] MEDS: HEPARIN 5,000 UNIT/0.5 ML VIAL SC SCH ×2 (09:27→20:08)
[2017-01-14] MEDS: COLLAGENASE 30 GM TUBE TOP SCH (09:34)
--- NOTE | 2017-01-14 11:34 | PN ---
Date/Time of Note Date/Time of Note DATE: 01/14/17 TIME: 11:31 Assessment/Plan Lines[facility]ters [facility] Assessment/Plan Problems: (1) Non-pressure chronic ulcer of other part of right foot with fat layer exposed (2) Uncontrolled diabetes mellitus Status: Acute Qualifiers: Diabetes mellitus type: type 2 Diabetes mellitus complication status: with hyperglycemia Diabetes mellitus termite renewal inspector insulin use: with termite renewal inspector use Qualified Code: E11.65 - Uncontrolled type 2 diabetes mellitus with hyperglycemia, with long-term current use of insulin Assessment/Plan Aseptic bedside debridement was done to bleeding subcu tissue in the left foot. Sterile dressing was applied. Patient is to have Santyl ointment to the wound with daily dressing changes. I will cancel the surgery today. Patient may be discharged today and she will follow-up in my office this coming Wednesday. Subjective 24 Hr Interval Summary Patient seen at bedside. Reports no pain and denies fever and chills. Reports that she is scheduled today for surgery. Denies trauma to the right foot. Constitutional: no complaints Pain Control: well controlled Exam/Review of Systems Vital Signs Vitals Vital Signs Date Time Temp Pulse Resp B/P Pulse Ox O2 Delivery O2 Flow Rate FiO2 01/14/17 08:00 98.6 76 20 156/76 96 Intake and Output 01/13/17 01/13/17 01/14/17 14:59 22:59 06:59 Intake Total 200 ml 1550 ml 250 ml Balance 200 ml 1550 ml 250 ml Exam Free Text/Dictation Patient is in no acute distress sitting comfortably in exam chair. Dressing was removed from the right foot. Open wound present on dorsal aspect of the right foot with mild necrotic tissue present. There is no drainage of pus and no bleeding noted. The wound appears to have improved since 2 days ago. Bedside aseptic debridement was done to bleeding tissue. There was no drainable abscess present. MRI was also reviewed again which showed no drainable abscess in the right foot. Dorsalis pedis and posterior tibial pulses palpable and capillary filling time is instantaneous. Protective sensation remains decreased to sharp, dull, vibratory temperature stimuli. Labs reviewed. MRI reviewed. Results Result Diagram: 01/14/17 0456 01/14/17 0456 MARYELLEN RODRIGUEZ DPM Jan 14, 2017 11:34
[2017-01-14 14:00] VITALS: BP 114/63; RESP 20
--- NOTE | 2017-01-14 14:46 | PN ---
Date/Time of Note Date/Time of Note DATE: 01/14/17 TIME: 14:30 Assessment/Plan VTE Prophylaxis VTE Prophylaxis Intervention: SCD's Lines/Catheters IV Catheter Type (from Nrsg): Saline Lock Assessment/Plan Assessment/Plan 51-year-old female: 1. Right foot infected diabetic ulcer with cellulitis of the right foot, infectious disease following, patient on vancomycin and cefepime. Wound culture with enterococcus and Luciana. MRI with no signs of abscess or osteomyelitis. Discussed with Dr Navarro yesterday, he will schedule debridement of the wound Appreciate Podiatry recs today, no need for further surgical debridement Follow further ID recommendation regarding final antibiotics regimen. Continue wound care. 2. Diabetes mellitus, uncontrolled with hemoglobin A1c above range. Appreciate DM education done. BG much better today. Continue current regimen of Lantus to 18 units every morning and insulin aspart 6 units q. before meals. May need to go up to Lantus 22/Novolog 8 as recommendation Continue sliding scale insulin. Continue metformin to 1000 mg po bid. Prophylaxis: Heparin for DVT prophylaxis, Pepcid for GI prophylaxis Disposition: Wound care and IV antibiotic, per podiatry no further surgical debridement needed, d/c planning home tomorrow. Subjective 24 Hr Interval Summary Free Text/Dictation Patient doing well She had a bedside debridement by Dr Navarro and no need for intraop debridement Will consolidate abx regimen with ID for d/c plan by tomorrow. Exam/Review of Systems Vital Signs Vitals Vital Signs Date Time Temp Pulse Resp B/P Pulse Ox O2 Delivery O2 Flow Rate FiO2 01/14/17 08:00 98.6 76 20 156/76 96 Intake and Output 01/13/17 01/13/17 01/14/17 15:00 23:00 07:00 Intake Total 200 ml 1550 ml 250 ml Balance 200 ml 1550 ml 250 ml Exam Constitutional: alert, oriented, well developed Respiratory: clear to auscultation, normal air movement Cardiovascular: nl pulses, regular rate and rhythm Musculoskeletal: nl extremities to inspection, other (right foot with dressing on ) Neurological: PROCESS WORKER II-XII intact, nl mental status, nl speech, nl strength Results Result Diagram: 01/14/17 0456 01/14/17 1115 Results 24 hrs Laboratory Tests Test 01/13/17 17:27 01/13/17 20:42 01/14/17 04:56 01/14/17 08:05 Bedside Glucose 144 122 167 White Blood Count 6.0 Red Blood Count 3.54 L Hemoglobin 9.7 L Hematocrit 29.7 L Mean Corpuscular Volume 83.9 Mean Corpuscular Hemoglobin 27.4 L Mean Corpuscular Hemoglobin Concent 32.7 Red Cell Distribution Width 13.3 Platelet Count 240 Mean Platelet Volume 9.9 Neutrophils % 59.5 Lymphocytes % 26.3 Monocytes % 8.2 Eosinophils % 2.2 Basophils % 0.5 Nucleated Red Blood Cells % 0.0 Neutrophils # 3.6 Lymphocytes # 1.6 Monocytes # 0.5 Eosinophils # 0.1 Basophils # 0.0 Nucleated Red Blood Cells # 0.0 Sodium Level 142 Potassium Level 5.6 H Chloride Level 108 Carbon Dioxide Level 23 Anion Gap 17 H Blood Urea Nitrogen 29 H Creatinine 0.91 Glucose Level 154 Calcium Level 9.1 Phosphorus Level 4.5 Magnesium Level 1.7 Test 01/14/17 11:15 01/14/17 12:20 Potassium Level 5.0 Bedside Glucose 155 Medications Medications Current Medications Cefepime HCl (Maxipime 1gm/50 ml (Pmx)) 50 ml @ 100 mls/hr Q12 IVPB Last administered on 01/14/17 09:26; Admin Dose 100 MLS/HR; Start 01/09/17 at 09:00 Diagnostic Test (Pha) (Accu-Chek) 1 ea 02 XX Last administered on 01/12/17 02: 59; Admin Dose 1 EA; Start 01/10/17 at 02:00 Collagenase (Santyl) 1 applic DAILY TOP Last administered on 01/14/17 09:34; Admin Dose 1 APPLIC; Start 01/09/17 at 12:00 Collagenase (Santyl) 1 applic PRN PRN TOP WOUND CARE; Start 01/09/17 at 10:30 Heparin Sodium (Porcine) (Heparin (5000 Units/0.5 ml)) 5,000 unit BID SC Last administered on 01/14/17 09:27; Admin Dose 5,000 UNIT; Start 01/09/17 at 21:00 Miscellaneous Information 1 ea NOTE XX ; Start 01/10/17 at 09:00 Glucose (Glutose) 15 gm Q15M PRN PO DECREASED GLUCOSE; Start 01/10/17 at 09:00 Glucose (Glutose) 22.5 gm Q15M PRN PO DECREASED GLUCOSE; Start 01/10/17 at 09: 00 Dextrose (D50w Syringe) 25 ml Q15M PRN IV DECREASED GLUCOSE; Start 01/10/17 at 09:00 Dextrose (D50w Syringe) 50 ml Q15M PRN IV DECREASED GLUCOSE; Start 01/10/17 at 09:00 Glucagon (Glucagen) 1 mg Q15M PRN IM DECREASED GLUCOSE; Start 01/10/17 at 09:00 Glucose (Glutose) 15 gm Q15M PRN BUCCAL DECREASED GLUCOSE; Start 01/10/17 at 09 :00 Lisinopril (Zestril) 10 mg DAILY GTB Last administered on 01/14/17 09:26; Admin Dose 10 MG; Start 01/10/17 at 09:00 Insulin Glargine (Lantus) 18 unit DAILY@08 SC Last administered on 01/14/17 08 :11; Admin Dose 18 UNIT; Start 01/12/17 at 08:00 Famotidine 20 mg 20 mg BID PO Last administered on 01/14/17 09:26; Admin Dose 20 MG; Start 01/11/17 at 21:00 Vancomycin HCl/ Sodium Chloride (Vancocin/NS) 250 ml @ 83.333 mls/ hr Q24H IVPB Last administered on 01/13/17 22:22; Admin Dose 83.333 MLS/HR; Start at 23:00 Voriconazole (Vfend) 200 mg BID PO Last administered on 01/14/17 09:26; Admin Dose 200 MG; Start 01/13/17 at 21:00 TAMIKO HDYE Jan 14, 2017 14:44
--- NOTE | 2017-01-14 15:31 | CONS ---
Date/Time of Note Date/Time of Note DATE: 01/14/17 TIME: 15:15 Assessment/Plan Assessment/Plan Chief Complaint/Hosp Course ID PROGRESS NOTE 24H INTERVAL SUMMARY * s/p debride by APC(1) Non-pressure chronic ulcer of other part of right foot with fat layer exposed * MRI revealed no osteomyelitis-. (+)Tenosynovitis * Antimicrobials: Cefepime vancomycin * Blood cultures remain negative, wound culture WOUND CULTURE Preliminary Organism 1 YEAST QUANTITY 1+ Organism 2 ENTEROCOCCUS SPECIES QUANTITY SCANT GROWTH Organism 3 COAGULASE NEGATIVE STAPH QUANTITY SCANT GROWTH ENT SPS COAG NEG M.I.C. RX M.I.C. RX --------- --- --------- --- AMPICILLIN <=2 S CEFAZOLIN R CIPROFLOXACIN <=0.5 S CLINDAMYCIN >=8 R DOXYCYCLINE S ERYTHROMYCIN >=8 R LEVOFLOXACIN <=0.12 S OXACILLIN >=4 R PENICILLIN-G 2 S >=0.5 R RIFAMPIN <=0.5 S VANCOMYCIN 1 S 1 S TRIMETHOPRIM/SULFAMETHOXAZOLE >=320 R Physical examination well-nourished well-developed middle-aged woman who is alert in no distress. Head atraumatic normocephalic sclera nonicteric. Neck is supple. Chest rise symmetrical breath sounds clear heart S1-S2 abdomen soft bowel tones present extremities without cyanosis right foot with necrotic wound and some drainage on the top of the foot ID ASSESSMENT : 1. Right foot cellulitis with chronic wound, no evidence of osteomyelitis but mild tenosynovitis * s/p Debride by APC (1) Non-pressure chronic ulcer of other part of right foot with fat layer exposed * WOUND CULTURE Preliminary Organism 1 YEAST QUANTITY 1+ Organism 2 ENTEROCOCCUS SPECIES QUANTITY SCANT GROWTH Organism 3 COAGULASE NEGATIVE STAPH QUANTITY SCANT GROWTH ENT SPS COAG NEG M.I.C. RX M.I.C. RX --------- --- --------- --- AMPICILLIN <=2 S CEFAZOLIN R CIPROFLOXACIN <=0.5 S CLINDAMYCIN >=8 R DOXYCYCLINE S ERYTHROMYCIN >=8 R LEVOFLOXACIN <=0.12 S OXACILLIN >=4 R PENICILLIN-G 2 S >=0.5 R RIFAMPIN <=0.5 S VANCOMYCIN 1 S 1 S TRIMETHOPRIM/SULFAMETHOXAZOLE >=320 R 2. Diabetes, poorly controlled 3. DM Peripheral neuropathy 4. Mild renal insufficiency ID RECOMMENDATIONS: I reviewed the case w/Dr. Mei who recommends may TNS vs DC Home on the following ABX: * 1. Vfend 200mg po BID x 28 days (renal safe) + Levaquin 500mg po daily x 28 days * 2. Zyvox 600mg PO Q12 H x 28 days if insurance will pay; alternative place PICC Line and DC on Vancomycin w/continued dose per pharmacy x 28 days. * 3. F/U with APC . Problems: Consultation Date/Type/Reason Admit Date/Time Jan 08, 2017 at 19:47 Type of Consultation: ID Exam/Review of Systems Vital Signs Vitals Vital Signs Date Time Temp Pulse Resp B/P Pulse Ox O2 Delivery O2 Flow Rate FiO2 01/14/17 08:00 98.6 76 20 156/76 96 Intake and Output 01/13/17 01/13/17 01/14/17 15:00 23:00 07:00 Intake Total 200 ml 1550 ml 250 ml Balance 200 ml 1550 ml 250 ml Results Result Diagram: 01/14/17 0456 01/14/17 1115 Results 24 hrs Laboratory Tests Test 01/13/17 17:27 01/13/17 20:42 01/14/17 04:56 01/14/17 08:05 Bedside Glucose 144 122 167 White Blood Count 6.0 Red Blood Count 3.54 L Hemoglobin 9.7 L Hematocrit 29.7 L Mean Corpuscular Volume 83.9 Mean Corpuscular Hemoglobin 27.4 L Mean Corpuscular Hemoglobin Concent 32.7 Red Cell Distribution Width 13.3 Platelet Count 240 Mean Platelet Volume 9.9 Neutrophils % 59.5 Lymphocytes % 26.3 Monocytes % 8.2 Eosinophils % 2.2 Basophils % 0.5 Nucleated Red Blood Cells % 0.0 Neutrophils # 3.6 Lymphocytes # 1.6 Monocytes # 0.5 Eosinophils # 0.1 Basophils # 0.0 Nucleated Red Blood Cells # 0.0 Sodium Level 142 Potassium Level 5.6 H Chloride Level 108 Carbon Dioxide Level 23 Anion Gap 17 H Blood Urea Nitrogen 29 H Creatinine 0.91 Glucose Level 154 Calcium Level 9.1 Phosphorus Level 4.5 Magnesium Level 1.7 Test 01/14/17 11:15 01/14/17 12:20 Potassium Level 5.0 Bedside Glucose 155 Medications Medications Current Medications Cefepime HCl (Maxipime 1gm/50 ml (Pmx)) 50 ml @ 100 mls/hr Q12 IVPB Last administered on 01/14/17 09:26; Admin Dose 100 MLS/HR; Start 01/09/17 at 09:00 Diagnostic Test (Pha) (Accu-Chek) 1 ea 02 XX Last administered on 01/12/17 02: 59; Admin Dose 1 EA; Start 01/10/17 at 02:00 Collagenase (Santyl) 1 applic DAILY TOP Last administered on 01/14/17 09:34; Admin Dose 1 APPLIC; Start 01/09/17 at 12:00 Collagenase (Santyl) 1 applic PRN PRN TOP WOUND CARE; Start 01/09/17 at 10:30 Heparin Sodium (Porcine) (Heparin (5000 Units/0.5 ml)) 5,000 unit BID SC Last administered on 01/14/17 09:27; Admin Dose 5,000 UNIT; Start 01/09/17 at 21:00 Miscellaneous Information 1 ea NOTE XX ; Start 01/10/17 at 09:00 Glucose (Glutose) 15 gm Q15M PRN PO DECREASED GLUCOSE; Start 01/10/17 at 09:00 Glucose (Glutose) 22.5 gm Q15M PRN PO DECREASED GLUCOSE; Start 01/10/17 at 09: 00 Dextrose (D50w Syringe) 25 ml Q15M PRN IV DECREASED GLUCOSE; Start 01/10/17 at 09:00 Dextrose (D50w Syringe) 50 ml Q15M PRN IV DECREASED GLUCOSE; Start 01/10/17 at 09:00 Glucagon (Glucagen) 1 mg Q15M PRN IM DECREASED GLUCOSE; Start 01/10/17 at 09:00 Glucose (Glutose) 15 gm Q15M PRN BUCCAL DECREASED GLUCOSE; Start 01/10/17 at 09 :00 Lisinopril (Zestril) 10 mg DAILY GTB Last administered on 01/14/17 09:26; Admin Dose 10 MG; Start 01/10/17 at 09:00 Insulin Glargine (Lantus) 18 unit DAILY@08 SC Last administered on 01/14/17 08 :11; Admin Dose 18 UNIT; Start 01/12/17 at 08:00 Famotidine 20 mg 20 mg BID PO Last administered on 01/14/17 09:26; Admin Dose 20 MG; Start 01/11/17 at 21:00 Vancomycin HCl/ Sodium Chloride (Vancocin/NS) 250 ml @ 83.333 mls/ hr Q24H IVPB Last administered on 01/13/17 22:22; Admin Dose 83.333 MLS/HR; Start at 23:00 Voriconazole (Vfend) 200 mg BID PO Last administered on 01/14/17 09:26; Admin Dose 200 MG; Start 01/13/17 at 21:00 RUPAL COHEN NP Jan 14, 2017 15:30
[2017-01-14] MEDS ORDERED: LIDOCAINE 1% (MPF) 5 ML VIAL SC ONE (17:00)
[2017-01-14] MEDS ORDERED: SOD CHLORIDE 0.9% 100 ML ONE (18:01)
[2017-01-14 19:46] VITALS: BP 156/67; RESP 18
[2017-01-14] MEDS: VANCOMYCIN 1.25 GM in SOD CHLORIDE 0.9% 250 ML IVPB SCH (22:53)
[2017-01-15 02:05] VITALS: BP 147/67; RESP 18
[2017-01-15] MEDS: ACCU-CHEK XX SCH (02:46)
--- NOTE | 2017-01-15 02:51 | RADRPT ---
PROCEDURE: XR Chest. CLINICAL INDICATION: PICC line placement. TECHNIQUE: Single frontal chest x-ray. COMPARISON: None. FINDINGS: There is a right PICC line with tip at the junction of the SVC and right atrium. Heart is normal in size.. There is no congestive heart failure.. No focal infiltrate is seen. There is no pleural ef fusion. There is no pneumothorax. The osseous structures are unremarkable. IMPRESSION: Right PICC line with tip at the junction of the SVC and right atrium. RPTAT: HMVK .Abhay Schaffer MD, MD Date Time Electronically viewed and signed by .Abhay Schaffer MD, MD on 01/15/2017 02:51 .K/
[2017-01-15 06:23] LABS: CREATININE 0.78 mg/dl (0.44-1.00); POTASSIUM 4.5 mmol/L (3.5-5.1)
--- NOTE | 2017-01-15 07:48 | RADRPT ---
PROCEDURE: US guidance for PICC line CLINICAL INDICATION: PICC line placement TECHNIQUE: Multiple real-time images were acquired of the patient's arm utilizing a high resolutio n transducer. This was performed by the PICC line nurse for venous access. COMPARISON: None FINDINGS: Ultrasound guidance for PICC line placement. IMPRESSION: Ultrasound guidance for PICC line placement. RPTAT: AA .Danilo Brooks MD, MD Date Time Electronically viewed and signed by .Danilo Brooks MD, on 01/15/2017 07:47 .S/
[2017-01-15] MEDS: metFORMIN 500 MG TAB PO SCH ×2 (07:56→17:16)
[2017-01-15] MEDS: INSULIN ASPART [NOVOLOG] 3 ML PEN SC SCH ×7 (07:57→20:45)
[2017-01-15] MEDS: INSULIN GLARGINE [LANtus] 3 ML PEN SC SCH (07:59)
[2017-01-15] MEDS: HEPARIN 5,000 UNIT/0.5 ML VIAL SC SCH ×2 (07:59→20:46)
[2017-01-15 08:00] VITALS: BP 147/78; RESP 18
[2017-01-15] MEDS: VORICONAZOLE 200 MG TAB PO SCH ×2 (08:00→20:45)
[2017-01-15] MEDS: FAMOTIDINE 20 MG TAB PO SCH ×2 (08:00→20:45)
[2017-01-15] MEDS: CEFEPIME 1GM/50 ML (PMX) 50 ML IVPB SCH (08:00)
[2017-01-15] MEDS: LISINOPRIL 10 MG TAB GTB SCH (08:00)
[2017-01-15] MEDS: COLLAGENASE 30 GM TUBE TOP SCH (09:41)
--- NOTE | 2017-01-15 10:53 | PN ---
Date/Time of Note Date/Time of Note DATE: 01/15/17 TIME: 10:18 Assessment/Plan VTE Prophylaxis VTE Prophylaxis Intervention: SCD's Lines/Catheters IV Catheter Type (from Nrs): PICC Line Central line still needed: Yes Assessment/Plan Assessment/Plan 51-year-old female: 1. Right foot infected diabetic ulcer with cellulitis and tenosynovitis of the right foot, infectious disease following, patient on vancomycin, Levaquin and Vfend based on cultures and per ID recommendations. Wound culture with enterococcus and Luciana. MRI with no signs of abscess or osteomyelitis. Discussed with Dr Navarro yesterday, he will schedule debridement of the wound Appreciate Podiatry recs today, no need for further surgical debridement Appreciate final ID recommendations regarding final antibiotics regimen ( Vancomycin, Levaquin, Vfend) 28 days. Continue wound care as outpatient. 2. Diabetes mellitus, uncontrolled with hemoglobin A1c above range. Appreciate DM education done. BG much better today. Continue current regimen of Lantus to 18 units every morning and insulin aspart 6 units q. before meals. May need to go up to Lantus 22/Novolog 8 as recommendation Continue sliding scale insulin. Continue metformin to 1000 mg po bid. Prophylaxis: Heparin for DVT prophylaxis, Pepcid for GI prophylaxis Disposition: Wound care and IV vancomycin along with oral Vfend and Levaquin 28 days for tenosynovitis, per podiatry no further surgical debridement needed, d/c planning home today with p.o. and IV antibiotics. Subjective 24 Hr Interval Summary Free Text/Dictation Patient doing well, awaiting discharge home PICC line placed overnight. No complaints this morning Exam/Review of Systems Vital Signs Vitals Vital Signs Date Time Temp Pulse Resp B/P Pulse Ox O2 Delivery O2 Flow Rate FiO2 01/15/17 08:00 98.2 74 18 147/78 98 Intake and Output 01/14/17 01/14/17 01/15/17 15:00 23:00 07:00 Intake Total 50 ml 650 ml 730 ml Balance 50 ml 650 ml 730 ml Exam Constitutional: alert, oriented, well developed Respiratory: clear to auscultation, normal air movement Cardiovascular: nl pulses, regular rate and rhythm Gastrointestinal: non-tender, soft Musculoskeletal: nl gait and stance, other (Right foot dressing in place, no edema or cellulitis detected around the wound.) Extremities: normal pulses, other (Status post left upper extremity PICC line) Neurological: INTERVENTIONIST II-XII intact, nl mental status, nl speech, nl strength Results Result Diagram: 01/14/17 0456 01/15/17 0429 Results 24 hrs Laboratory Tests Test 01/14/17 11:15 01/14/17 12:20 01/14/17 20:05 01/15/17 01:48 Potassium Level 5.0 Bedside Glucose 155 248 H 176 Test 01/15/17 04:29 01/15/17 07:55 Sodium Level 143 Potassium Level 4.5 Chloride Level 107 Carbon Dioxide Level 24 Anion Gap 17 H Blood Urea Nitrogen 27 H Creatinine 0.78 Glucose Level 169 Calcium Level 9.0 Bedside Glucose 142 Medications Medications Current Medications Cefepime HCl (Maxipime 1gm/50 ml (Pmx)) 50 ml @ 100 mls/hr Q12 IVPB Last administered on 01/15/17 08:00; Admin Dose 100 MLS/HR; Start 01/09/17 at 09:00 Diagnostic Test (Pha) (Accu-Chek) 1 ea 02 XX Last administered on 01/15/17 02: 46; Admin Dose 1 EA; Start 01/10/17 at 02:00 Collagenase (Santyl) 1 applic DAILY TOP Last administered on 01/15/17 09:41; Admin Dose 1 APPLIC; Start 01/09/17 at 12:00 Collagenase (Santyl) 1 applic PRN PRN TOP WOUND CARE; Start 01/09/17 at 10:30 Heparin Sodium (Porcine) (Heparin (5000 Units/0.5 ml)) 5,000 unit BID SC Last administered on 01/15/17 07:59; Admin Dose 5,000 UNIT; Start 01/09/17 at 21:00 Miscellaneous Information 1 ea NOTE XX ; Start 01/10/17 at 09:00 Glucose (Glutose) 15 gm Q15M PRN PO DECREASED GLUCOSE; Start 01/10/17 at 09:00 Glucose (Glutose) 22.5 gm Q15M PRN PO DECREASED GLUCOSE; Start 01/10/17 at 09: 00 Dextrose (D50w Syringe) 25 ml Q15M PRN IV DECREASED GLUCOSE; Start 01/10/17 at 09:00 Dextrose (D50w Syringe) 50 ml Q15M PRN IV DECREASED GLUCOSE; Start 01/10/17 at 09:00 Glucagon (Glucagen) 1 mg Q15M PRN IM DECREASED GLUCOSE; Start 01/10/17 at 09:00 Glucose (Glutose) 15 gm Q15M PRN BUCCAL DECREASED GLUCOSE; Start 01/10/17 at 09 :00 Lisinopril (Zestril) 10 mg DAILY GTB Last administered on 01/15/17 08:00; Admin Dose 10 MG; Start 01/10/17 at 09:00 Insulin Glargine (Lantus) 18 unit DAILY@08 SC Last administered on 01/15/17 07 :59; Admin Dose 18 UNIT; Start 01/12/17 at 08:00 Famotidine 20 mg 20 mg BID PO Last administered on 01/15/17 08:00; Admin Dose 20 MG; Start 01/11/17 at 21:00 Vancomycin HCl/ Sodium Chloride (Vancocin/NS) 250 ml @ 83.333 mls/ hr Q24H IVPB Last administered on 01/14/17 22:53; Admin Dose 83.333 MLS/HR; Start at 23:00 Voriconazole (Vfend) 200 mg BID PO Last administered on 01/15/17 08:00; Admin Dose 200 MG; Start 01/13/17 at 21:00 IV Flush (NS 10 ml) 10 ml PRN PRN IV IV PROTOCOL; Start 01/14/17 at 19:00 TAMIKO HYDE Jan 15, 2017 10:31
--- NOTE | 2017-01-15 10:56 | PDOCDIS ---
Discharge Instructions CONDITION Patient Condition: Good HOME CARE INSTRUCTIONS: Special Diet: carb control ACTIVITY: Activity Restrictions: Slowly Increase Activity FOLLOW UP/APPOINTMENTS Follow-up Plan Follow-up with wound care/podiatry Dr. Navarro on January 19 Follow-up with primary care physician within 1 week Referral to outpatient diabetic clinic to [facility] OTHER ORDERS: Other Orders: For wound care, per Dr. Navarro's instruction, patient is to have Santyl ointment to the wound with daily dressing changes. TAMIKO HYDE Jan 15, 2017 10:56
[2017-01-15] MEDS ORDERED: LEVOFLOXACIN 500 MG TAB PO SCH (11:00)
[2017-01-15] MEDS ORDERED: INSU200I SQ (11:01)
[2017-01-15] MEDS ORDERED: METF500T PO (11:01)
[2017-01-15] MEDS ORDERED: LEVO500T72 PO (11:01)
[2017-01-15] MEDS ORDERED: VANC1.257 IV (11:01)
[2017-01-15] MEDS ORDERED: VORI200T12 PO (11:01)
[2017-01-15] MEDS ORDERED: LACT1CAP28 PO (11:01)
[2017-01-15] MEDS ORDERED: LOSA25TA2 PO (11:04)
[2017-01-15 14:25] VITALS: BP 122/61; RESP 16
[2017-01-15] MEDS ORDERED: INSU100I27 SQ (15:48)
[2017-01-15] MEDS: VANCOMYCIN 1.25 GM in SOD CHLORIDE 0.9% 250 ML IVPB SCH (18:50)
[2017-01-15 20:47] VITALS: BP 188/79; RESP 18
[2017-01-15 20:51] VITALS: BP 151/67; PULSE 78
[2017-01-15] MEDS ORDERED: LOSARTAN 25 MG TAB PO SCH (21:00)
[2017-01-15 22:30] VITALS: BP 140/61; PULSE 80
--- NOTE | 2017-01-17 07:52 | CONS ---
DATE OF ADMISSION: 01/08/2017 DATE OF CONSULTATION: 01/09/2017 REASON FOR CONSULTATION: Antibiotic management. HISTORY OF PRESENT ILLNESS: Lydia Pearce is a 51-year- old female, who is admitted with infected right foot diabetic ulcer. Her past problems include adult-onset diabetes mellitus. Patient presented to the emergency room complaining of right foot infection. She developed some ulceration, which was open and some drainage of the dorsum of the right foot about a week ago and this has been progressively getting worse. It also started after she was bitten by a mosquito according to the patient. She had subjective fever and chills, abdominal pain. No urinary symptoms. When she presented to the ER, a chest x-ray was done that showed soft tissue swelling on the dorsum of the right foot, but without radiographic evidence of osteomyelitis. Her blood sugar was 462. Today her white count is 8.3, H and H of 10.4 and 31, platelet count of 191,000. BUN and creatinine are 25/0.94. Her blood sugar is in the 260 range. Alkaline phosphatase was elevated at 154. PAST MEDICAL HISTORY: Operations as outlined: None. FAMILY HISTORY: Noncontributory. SOCIAL HISTORY: She does not smoke, drink, or abuse drugs. ALLERGIES: NONE TO PENICILLIN, SULFA, OR FOODS. MEDICATION: Per chart. REVIEW OF SYSTEMS: Noncontributory. PHYSICAL EXAMINATION: GENERAL APPEARANCE: Patient is a well-developed, well-nourished female, who is alert, responsive, in no acute distress. VITAL SIGNS: Stable. She is afebrile. SKIN: Without generalized rash. HEENT: Within normal limits. NECK: Supple. Lymph nodes nonpalpable. CHEST: Decreased breath sounds at the bases. HEART: Without murmur or gallop. ABDOMEN: Soft, obese, nontender, without organosplenomegaly or masses. EXTREMITIES: Without cyanosis or clubbing. She has bilateral lower extremity edema. Also she has a diabetic foot ulcer on the right with some surrounding erythema. RECTAL AND GENITAL: Deferred. NEUROLOGICAL: No focal neurological abnormalities. Decreased sensations in distal extremities. IMPRESSION/PLAN: Patient is admitted with diabetic foot ulcer. She was started on vancomycin and cefepime. We will continue her on this regimen. I will dictate my findings to the hospitalist. Dictated By: Demetrius Mei MD JD/marco/nadira /Document#: [id number]
== END 2017-01-15 23:09 | disposition home health service (06) | DRG 571 ==
LOC: E/R 13:33 → PP2 19:47
PROVIDERS: ADMIT Internal Medicine; ATTEND Internal Medicine
PROC: 0JBQ0ZZ Excision of Right Foot Subcutaneous Tissue and Fascia, Open Approach (ICD-10-PCS; principal; 2017-01-14)
PROC: 02HV33Z Insertion of Infusion Device into Superior Vena Cava, Percutaneous Approach (ICD-10-PCS; 2017-01-14)
PROC: B548ZZA Ultrasonography of Superior Vena Cava, Guidance (ICD-10-PCS; 2017-01-14)
DX: L03.115 Cellulitis of right lower limb (principal); L97.412 Non-pressure chronic ulcer of right heel and midfoot with fat layer exposed; E11.42 Type 2 diabetes mellitus with diabetic polyneuropathy; E11.621 Type 2 diabetes mellitus with foot ulcer; E87.1 Hypo-osmolality and hyponatremia; E11.65 Type 2 diabetes mellitus with hyperglycemia; D64.9 Anemia, unspecified; M65.871 Other synovitis and tenosynovitis, right ankle and foot; B95.2 Enterococcus as the cause of diseases classified elsewhere; Z16.11 Resistance to penicillins; Z16.29 Resistance to other single specified antibiotic; Z79.4 Long term (current) use of insulin; Z90.710 Acquired absence of both cervix and uterus
CPT/HCPCS: 36569; 71010; 73630; 73718; 76937; 80048; 80053; 80061; 80076; 80202; 82962; 83036; 83735; 84100; 84132; 85025; 87040; 87070; 96372; 96374; J0692; J1644; J1815; J3370; J3475; J7030; J7050

== ENCOUNTER → 2017-01-27 | Outpatient (CLI) | payer OTHER ==
[~2017-01-27] MED LIST: INSU100I27 SQ; INSU200I SQ; LACT1CAP28 PO; LEVO500T72 PO; LOSA25TA2 PO; METF500T PO; VANC1.257 IV; VORI200T12 PO
== END | disposition home or self-care (01) ==
LOC: DIB 14:09
PROVIDERS: ATTEND Internal Medicine
DX: Z02.9 Encounter for administrative examinations, unspecified (principal)